=== PATIENT | male | born 1985 | race Caucasian/White ===

== ENCOUNTER 2016-11-18 15:50 | Emergency (ER) | payer SELFPAY ==
[2016-11-18] MEDS ORDERED: Aspirin Low Dose CHEW TAB* 81 MG PO ONE (16:55)
[2016-11-18 17:04] VITALS: BP 136/87
--- NOTE | 2016-11-25 07:16 | UC ---
Tracy Mitchell SooYoung, scribed for Nimo Jarquin DO on 11/18/16 at 1603 . Dizzy HPI HPI Summary: A 31 y/o M presents to [facility] [place] with worsening dizziness onset 2-3 days ago. Denies room-spinning. Associated sx: moving temporal and frontal HANSEN, back rash for one day that resolved. Rates HANSEN pain as 5 out of 10. Pert PMHx: migraines. His current migraine medication is not alleviating the pain. Pt says it doesn't feel the same as his nml migraine. Denies CP, SOB, v/d, myalgia, back pain. Pt is a daily smoker with poor dietary choices. FHx: grandfather from [place] at 40. Father has a clotting disorder with h/o dvt. Secondary complaints: Epigastric abd pain onset yesterday with nausea, rated as 4 out of 10, and described as dull. He notes regular BM, no melena. Alleviating factor: "drinking anything." Prev dx: IBS. Pt states he did not pursue recommended treatment. Previously, he's tried to avoid bread/gluten, spicy foods , and did not notice a benefit. Pt also describes having ongoing tongue numbness for past two years that has become a constant tongue pain in mouth for past month. He's been seen by his past PCP for, had blood work done, but to no relief. - History Of Current Complaint Stated Complaint: DIZZINESS Hx Obtained From: Patient, Medical Records Onset/Duration: Lasting Days, Still Present Timing: Constant Severity Currently: Moderate Pain Intensity: 5 Pain Scale Used: 0-10 Numeric Character: Dizzy Aggravating Factor(s): Nothing Alleviating Factor(s): Nothing Associated Signs And Symptoms: Positive: Nausea. Negative: Vomiting, Diaphoresis, Chest Pain, SOB, Unsteady Gait, Visual Changes - Risk Factors Cardiac Risk Factors: Smoking, Family History CVA Risk Factor: Smoking - Allergies/Home Medications Allergies/Adverse Reactions: Allergies Allergy/AdvReac Type Severity Reaction Status Date / Time Penicillins Allergy Unknown Rash Verified 11/18/16 16:01 PMH/Surg Hx/FS Hx/Imm Hx Previously Healthy: No Endocrine History Of: Denies: Diabetes, Thyroid Disease, Hyperthyroidism, Hypothyroidism, Dyslipidemia Cardiovascular History Of: Denies: Cardiac Disorders, Hypertension, Pacemaker/ICD, Myocardial Infarction , Congestive Heart Failure, Atrial Fibrillation Respiratory History Of: Reports: Bronchitis - HAS HAD IT MANY TIMES Denies: COPD, Asthma, Pneumonia, Pulmonary Embolism GI/ History Of: Denies: Gastroesophageal Reflux, Ulcer, Gastrointestinal Bleed, Gall Bladder Disease, Kidney Stones, Diverticulitis, Renal Disease, Urosepsis Neurological History Of: Reports: Migraine Denies: TIA, CVA, Dementia, Seizures Psychological History Of: Reports: Anxiety Denies: Depression, Bipolar Disorder, Schizophrenia, Post Traumatic Stress Disorder Cancer History Of: Denies: Lung Cancer, Colorectal Cancer, Breast Cancer, Prostate Cancer, Cervical Cancer - Surgical History Surgical History: Yes Surgery Procedure, Year, and Place: Dental extraction-wisdom teeth - Family History Known Family History: Positive: Cardiac Disease - grandfather, [place] at 40, Hypertension - father, Other - pos: father, blood clots/genetic clotting disorder Negative: Diabetes - Social History Occupation: Employed Full-time Lives: Alone Alcohol Use: None Alcohol Amount: twice a month Substance Use Type: None Smoking Status (MU): Current Every Day Smoker Type: Cigarettes, Smokeless Tobacco Amount Used/How Often: 1/4 PPD Length of Time of Smoking/Using Tobacco: 15 years Have You Smoked in the Last Year: Yes Household Exposure Type: Cigarettes - Immunization History Most Recent Tetanus Shot: unknown Review of Systems Constitutional: Negative Skin: Rash - pos: back, resolved Eyes: Negative ENT: Other - pos: tongue pain Respiratory: Negative Cardiovascular: Negative Gastrointestinal: Abdominal Pain, Other - pos: nausea Genitourinary: Negative Motor: Negative Neurovascular: Negative Musculoskeletal: Negative Neurological: Headache, Other - pos: dizziness Psychological: Negative All Other Systems Reviewed And Are Negative: Yes Physical Exam Triage Information Reviewed: Yes Appearance: Well-Appearing, No Pain Distress, Well-Nourished Vital Signs: Initial Vital Signs Temp 98.5 F 11/18/16 15:58 Pulse 90 11/18/16 15:58 Resp 18 11/18/16 15:58 BP 134/73 11/18/16 15:58 Pulse Ox 97 11/18/16 15:58 Vital Signs Reviewed: Yes Eyes: Positive: Conjunctiva Clear. Negative: Discharge ENT: Positive: Hearing grossly normal. Negative: Muffled/hoarse voice Neck exam: Normal Neck: Positive: Supple Respiratory: Positive: Lungs clear, Normal breath sounds, No respiratory distress, No accessory muscle use Cardiovascular: Positive: RRR, No Murmur Abdomen Description: Positive: Nontender, Soft. Negative: Distended, Guarding Bowel Sounds: Positive: Present Musculoskeletal Exam: Normal Neurological: Positive: Alert, Muscle Tone Normal Psychological: Positive: Age Appropriate Behavior Skin Exam: Normal, Other - pos: warm, dry, color nml UC Physical Exam Vital Signs On Initial Exam: Initial Vitals Temp Pulse Resp BP Pulse Ox 98.5 F 90 18 134/73 97 11/18/16 15:58 11/18/16 15:58 11/18/16 15:58 11/18/16 15:58 11/18/16 15:58 - Neurological Exam Neurological: Sensory/Motor Intact, Alert, Oriented to Person Place, Time, CN Intact II-III, Reflexes Intact, Cerebellar Dysfunction - none, Slurred Speech - none, Rhomberg - neg, Finger to Nose - wnl, Facial Symmetry - wnl, Speech Normal , Pronator Drift Present - negative Diagnostics - EKG Cardiac Rate: NL - 79 bpm Cardiac Rhythm: Sinus: Normal ST Segment: Normal Dizzy Course/Dx - Differential Dx/Diagnosis Differential Diagnosis/HQI/PQRI: Anxiety, Benign Paroxysmal Positional Vertigo, CVA, Labyrinthitis, Myocardial Infarction, Transient Ischemic Attack Provider Diagnoses: dizziness, epigastric pain Discharge - Discharge Plan Condition: Stable Disposition: AGAINST MEDICAL ADVICE Forms: *Work Release Referrals: Baldev De Leon MD [Primary Care Provider] - The documentation as recorded by the Tracy de SooYoung accurately reflects the service I personally performed and the decisions made by , Nimo Jarquin DO.
== END 2016-11-18 17:03 | disposition left against medical advice (07) ==
LOC: UCEAST 15:50
DX: R42 Dizziness and giddiness (principal); R10.13 Epigastric pain; R11.0 Nausea; Z88.0 Allergy status to penicillin; F17.210 Nicotine dependence, cigarettes, uncomplicated
CPT/HCPCS: 93005; 99212; G0463

== ENCOUNTER 2017-04-16 07:08 | Emergency (ER) | payer SELFPAY ==
[2017-04-16 07:34] VITALS: BP 141/81
--- NOTE | 2017-04-16 12:24 | UC ---
Bianca Mitchell Edward, scribed for Nimo Jarquin DO on 04/16/17 at 0733 . Skin Complaint HPI - HPI Summary HPI Summary: 32 y/o male presents to [facility] c/o abscess on the inside of the R thigh. The patient states that the abscess started draining yesterday with lots of blood but no obvious pus. The pain due to the abscess is rated 8/10 described as a sharp ache that is aggravated by touch. Associated sx: nausea, vomiting (due to pain), rash on stomach, sore throat, nasal congestion. Patient denies fever, chills, CP, SOB, HANSEN, ear ache. Patient often develops ingrown hairs. PMHx IBS and genital warts. FHx father gets blood clots. Everyday smoker. Rarely drinks alcohol. - History of Current Complaint Time Seen by Provider: 04/16/17 07:17 Stated Complaint: LUMP ON INNER THIGH Hx Obtained From: Patient Onset/Duration: Gradual Onset, Lasting Days - 2 days ago Timing: Constant Onset Severity: Severe Current Severity: Severe Pain Intensity: 8 Pain Scale Used: 0-10 Numeric Location: Discrete, Other - Inside of the R thigh Character: Pain, Redness, Raised Aggravating: Touch Alleviating: Other - position Associated Signs & Symptoms: Positive: Nausea, Vomiting, Rash - Heat rash, Drainage - Blood, no pus, Tenderness - Allergy/Home Medications Allergies/Adverse Reactions: Allergies Allergy/AdvReac Type Severity Reaction Status Date / Time Penicillins Allergy Unknown Rash Verified 04/16/17 07:27 Review of Systems Constitutional: Negative Skin: Rash, Other - Abscess on inside of R thigh Eyes: Negative ENT: Sore Throat, Sinus Congestion Respiratory: Negative Cardiovascular: Negative Gastrointestinal: Vomiting - resolved - pt has h/o n/v with mod to severe pain, Nausea - resolved - pt has h/o n/v with mod to severe pain Genitourinary: Negative Motor: Negative Neurovascular: Negative Musculoskeletal: Negative Neurological: Negative Psychological: Negative All Other Systems Reviewed And Are Negative: Yes PMH/Surg Hx/FS Hx/Imm Hx Previously Healthy: No Other GI/ History: Genital Warts, IBS - Surgical History Surgical History: Yes Surgery Procedure, Year, and Place: Dental extraction-wisdom teeth - Family History Known Family History: Positive: Cardiac Disease - grandfather, [place] at 40, Hypertension - father, Other - pos: father, blood clots/genetic clotting disorder Negative: Diabetes - Social History Alcohol Use: Occasionally Alcohol Amount: twice a month Substance Use Type: None Smoking Status (MU): Current Every Day Smoker Type: Cigarettes, Smokeless Tobacco Amount Used/How Often: 1/4 PPD Length of Time of Smoking/Using Tobacco: 15 years Have You Smoked in the Last Year: Yes Household Exposure Type: Cigarettes Cessation Counseling: Patient Advised to Stop - Immunization History Most Recent Tetanus Shot: unknown Physical Exam Triage Information Reviewed: Yes Appearance: Well-Appearing, No Pain Distress, Obese Vital Signs: Initial Vital Signs Temp 97.9 F 04/16/17 07:27 Pulse 89 04/16/17 07:27 Resp 16 04/16/17 07:27 BP 141/81 04/16/17 07:27 Pulse Ox 98 04/16/17 07:27 Vital Signs Reviewed: Yes Eyes: Positive: Conjunctiva Clear. Negative: Discharge ENT: Positive: Hearing grossly normal. Negative: Muffled/hoarse voice Neck exam: Normal Neck: Positive: Supple Respiratory: Positive: Lungs clear, Normal breath sounds, No respiratory distress, No accessory muscle use Cardiovascular: Positive: RRR, No Murmur Musculoskeletal Exam: Normal Neurological: Positive: Alert, Muscle Tone Normal Psychological Exam: Normal Psychological: Positive: Age Appropriate Behavior Skin Exam: Other - Warm, dry, normal color Skin: Positive: Other - 2 cm indurated region with 4 cm redness. Erythema and tenderness does not extend into anal, perineal and scrotal area. Course/Dx - Differential Diagnoses - Skin Complaint Differential Diagnoses: Abscess, Cellulitis, Contact Dermatitis, Tinea, Urticaria - Diagnoses Provider Diagnoses: abscess Discharge - Discharge Plan Condition: Stable Disposition: HOME Prescriptions: Acetaminop/Codeine 30 MG TAB* [Tylenol/Codeine 30 MG TAB*] 1 tab PO Q6H PRN #12 tab MDD 4 tabs PRN Reason: Pain Sulfamethox/Trimethoprim DS* [Bactrim DS 800/160 TAB*] 1 tab PO BID #20 tab Patient Education Materials: Abscess (ED), Warm Compress or Soak (ED) Referrals: Baldev De Leon MD [Primary Care Provider] - 2 Days (Follow up in 2 days for re- evaluation. This follow up visit is important, we want to know that you are improving. If you can not get in with your PCP, return here for re-evaluation. ) Additional Instructions: ANTIBIOTIC THERAPY: You have been given an antibiotic prescription. It's important that you take all the medication, unless instructed otherwise by your physician. Failure to complete the entire course can result in relapse of your condition. Common side effects of antibiotics include nausea, intestinal cramping, or diarrhea. Women may develop vaginal yeast infections, and babies can get yeast (thrush) in the mouth following the use of antibiotics. Contact your physician if you develop significant side effects from this medication. Allergy to this antibiotic can result in hives, wheezing, faintness, or itching. If symptoms of allergy occur, stop the medication and call the doctor. ANYTIME YOU TAKE AN ANTIBIOTIC, IT IS IMPORTANT TO REPLENISH THE BODY'D SUPPLY OF "GOOD BACTERIA." YOU CAN GET GOOD BACTERIA FROM HIGH QUALITY CULTURED FOODS SUCH LOCAL YOGURT, SOUR KRAUT, JOSEPHINE MEGAN, NATURALLY FERMENTED PICKLES AND PROBIOTIC DRINKS. YOU CAN ALSO GET GOOD BACTERIA FROM A PROBIOTIC SUPPLEMENT. ACETAMINOPHEN WITH CODEINE: You have been given a prescription for acetaminophen with codeine for pain control. Codeine is a narcotic. It is best taken with food, as nausea can result if taken on an empty stomach. Don't operate machinery or drive within six hours of taking this medication. Do not combine this medication with alcohol, or with any sedative type medicine such as cold tablets or sleeping pills unless your doctor gives permission. Narcotics tend to cause constipation. It's best to get plenty of fluids, fiber, and fruits. The documentation as recorded by the Bianca de Edward accurately reflects the service I personally performed and the decisions made by me, Nimo Jarquin DO.
== END 2017-04-16 08:08 | disposition home or self-care (01) ==
LOC: UCEAST 07:08
DX: L02.415 Cutaneous abscess of right lower limb (principal); Z72.0 Tobacco use
CPT/HCPCS: 99212; G0463

== ENCOUNTER 2017-08-18 15:57 | Emergency (ER) | payer SELFPAY ==
[2017-08-18 16:04] VITALS: BP 141/83
--- NOTE | 2017-08-25 21:33 | UC ---
Skin Complaint HPI - HPI Summary HPI Summary: Patient presents with complaints of pimples on his inner thighs that are red, raised and painful. He states he has had them in this area before and had to be on antibiotics. He denies drainage, fever, chills, dysuria or testicular pain. He denies any injury or trauma. - History of Current Complaint Chief Complaint: UCSkin Time Seen by Provider: 08/18/17 16:14 Stated Complaint: SKIN COMPLAINT Hx Obtained From: Patient Onset/Duration: Gradual Onset, Lasting Days Skin Exposure Onset/Duration: Days Ago Onset Severity: Moderate Current Severity: Severe Pain Intensity: 8 Pain Scale Used: 0-10 Numeric Location: Discrete, Other - left medial thigh Character: Swelling, Redness, Raised, Painful Aggravating Factor(s): Touch, Other - sitting, crossig his legs. Alleviating Factor(s): Heat Associated Signs & Symptoms: Positive: Tenderness - Allergy/Home Medications Allergies/Adverse Reactions: Allergies Allergy/AdvReac Type Severity Reaction Status Date / Time Penicillins Allergy Unknown Rash Verified 08/18/17 16:04 Review of Systems Constitutional: Negative - pimple on thigh Skin: Other Eyes: Negative ENT: Negative Respiratory: Negative Cardiovascular: Negative Gastrointestinal: Negative Genitourinary: Negative Motor: Negative Neurovascular: Negative Musculoskeletal: Negative Neurological: Negative Psychological: Negative All Other Systems Reviewed And Are Negative: Yes PMH/Surg Hx/FS Hx/Imm Hx Previously Healthy: Yes - Surgical History Surgical History: Yes Surgery Procedure, Year, and Place: Dental extraction-wisdom teeth - Family History Known Family History: Positive: Cardiac Disease - grandfather, [place] at 40, Hypertension - father, Other - pos: father, blood clots/genetic clotting disorder Negative: Diabetes - Social History Alcohol Use: None Alcohol Amount: twice a month Substance Use Type: None Smoking Status (MU): Current Every Day Smoker Type: Cigarettes, Smokeless Tobacco Amount Used/How Often: 1/4 PPD Length of Time of Smoking/Using Tobacco: 15 years Have You Smoked in the Last Year: Yes Household Exposure Type: Cigarettes - Immunization History Most Recent Tetanus Shot: unknown Physical Exam Triage Information Reviewed: Yes Appearance: Pain Distress Vital Signs: Initial Vital Signs Temp 98.4 F 08/18/17 16:01 Pulse 85 08/18/17 16:01 Resp 18 08/18/17 16:01 BP 141/83 08/18/17 16:01 Pulse Ox 100 08/18/17 16:01 Eye Exam: Normal ENT Exam: Normal Dental Exam: Normal Neck exam: Normal Neck: Positive: 1 Respiratory Exam: Normal Cardiovascular Exam: Normal Abdominal Exam: Normal Musculoskeletal Exam: Normal Neurological Exam: Normal Psychological Exam: Normal Skin Exam: Other - left meidal thigh with area of induration, no flucuance noted. warm and painful to touch. Course/Dx - Course Course Of Treatment: Patient was treated with antibiotics and pain medication. - Differential Diagnoses - Skin Complaint Differential Diagnoses: Other - hidradenitis suppurativa - Diagnoses Provider Diagnoses: hidradenitis suppurativa Discharge - Discharge Plan Condition: Stable Disposition: HOME Prescriptions: HYDROcodone/ACETAMIN 5-325 MG* [[place] 5-325 TAB*] 1 tab PO Q4H PRN #14 tab MDD 6 PRN Reason: Pain Sulfamethox/Trimethoprim DS* [Bactrim DS 800/160 TAB*] 1 tab PO BID #20 tab Patient Education Materials: Hidradenitis Suppurativa (ED) Forms: *Work Release Referrals: Baldev De Leon MD [Primary Care Provider] - Daniela Sy [Medical Doctor] -
== END 2017-08-18 16:30 | disposition home or self-care (01) ==
LOC: UCEAST 15:57
DX: L73.2 Hidradenitis suppurativa (principal); Z88.0 Allergy status to penicillin; F17.210 Nicotine dependence, cigarettes, uncomplicated
CPT/HCPCS: 99211; G0463

== ENCOUNTER 2017-09-04 17:54 | Emergency (ER) | payer SELFPAY ==
[2017-09-04] MEDS ORDERED: Ondansetron ODT TAB* 4 MG PO ONE (18:25)
[2017-09-04] MEDS ORDERED: Omeprazole CAP* 20 MG PO ONE (18:25)
--- NOTE | 2017-09-04 18:31 | UC ---
Tracy Mitchell SooYoung, scribed for Neri Gerber MD on 09/04/17 at 1814 . Abdominal Pain Male HPI - HPI Summary HPI Summary: A 32 y/o M presents to [facility] with abd pain for past 4-5 days. Associated sx: nausea, diarrhea, low grade fever under 100 F. Pt states sx will spontaneously resolve for about a day, but then flare up again. Denies melena. He states it feels similar to prev episodes of his IBS flare ups. Pert PMHx: IBS, dx approx. 2011. He was taking Levbid which provided some relief. Pt has been without health insurance for 2 years. - History of Current Complaint Chief Complaint: UCAbdominalPain Stated Complaint: ABDOMINAL PAIN Time Seen by Provider: 09/04/17 18:07 Hx Obtained From: Patient Onset/Duration: Gradual Onset, Lasting Days, Still Present Severity Initially: Moderate Severity Currently: Moderate Pain Intensity: 6 Pain Scale Used: 0-10 Numeric Location: Diffuse Aggravating Factor(s): Other - Smoking Alleviating Factor(s): Rest - sleeping, Spontaneous Resolution, Other - eating Associated Signs And Symptoms: Positive: Nausea, Diarrhea, Other - neg: melena - Allergies/Home Medications Allergies/Adverse Reactions: Allergies Allergy/AdvReac Type Severity Reaction Status Date / Time Penicillins Allergy Unknown Rash Verified 09/04/17 18:05 PMH/Surg Hx/FS Hx/Imm Hx Previously Healthy: No Respiratory History: Bronchitis GI/ History: Other Other GI/ History: IBS - Surgical History Surgical History: Yes Surgery Procedure, Year, and Place: Dental extraction-wisdom teeth - Family History Known Family History: Positive: Cardiac Disease - grandfather, [place] at 40, Hypertension - father, Other - pos: father, blood clots/genetic clotting disorder Negative: Diabetes - Social History Occupation: Employed Full-time Lives: With Family Alcohol Use: None Alcohol Amount: twice a month Substance Use Type: None Smoking Status (MU): Current Every Day Smoker Type: Cigarettes, Smokeless Tobacco Amount Used/How Often: 1/4 PPD Length of Time of Smoking/Using Tobacco: 15 years Have You Smoked in the Last Year: Yes Household Exposure Type: Cigarettes - Immunization History Most Recent Tetanus Shot: unknown Review of Systems Constitutional: Fever - low grade Gastrointestinal: Abdominal Pain, Diarrhea, Nausea, Other - neg: melena All Other Systems Reviewed And Are Negative: Yes Physical Exam Triage Information Reviewed: Yes Appearance: Well-Appearing, No Pain Distress Vital Signs: Initial Vital Signs Temp 99.8 F 09/04/17 18:00 Pulse 90 09/04/17 18:00 Resp 16 09/04/17 18:00 Pulse Ox 99 09/04/17 18:00 Vital Signs Reviewed: Yes Eyes: Positive: Other: - RIANA, EOMI ENT: Positive: Normal ENT inspection Neck: Positive: Supple, Nontender Respiratory: Positive: Lungs clear, Normal breath sounds Cardiovascular: Positive: RRR Abdomen Description: Positive: Soft, Other: - Mild tenderness to L umbilicus Bowel Sounds: Positive: Present Musculoskeletal Exam: Normal Musculoskeletal: Positive: Strength Intact, ROM Intact Neurological Exam: Normal Neurological: Positive: Alert, Muscle Tone Normal Psychological: Positive: Age Appropriate Behavior Skin Exam: Normal - warm, dry, color reflects adequate perfusion Abd Pain Male Course/Dx - Course Course Of Treatment: A 32 y/o M presents to [facility] with abd pain for past 4-5 days. Associated sx: nausea, diarrhea, low grade fever under 100 F. Pt states sx will spontaneously resolve for about a day, but then flare up again. Denies melena. He states it feels similar to prev episodes of his IBS flare ups. Pert PMHx: IBS, dx approx. 2011. He was taking Levbid which provided some relief. Pt has been without health insurance for 2 years. Medications reviewed. PROBABLE IBS EXACERBATION. DISCUSSED NEED FOR EVALUATION IN EMERGENCY DEPARTMENT IF CONDITION PERSISTS OR WORSENS. - Differential Dx/Clinical Impression Provider Diagnoses: ABDOMINAL PAIN Discharge - Discharge Plan Condition: Stable Disposition: HOME Prescriptions: Famotidine TAB* [Pepcid 20 MG TAB*] 20 mg PO BID #30 tab Hyoscyamine Sulfate [Levsin] 0.125 mg PO TID #30 tab Prochlorperazine TAB* [Compazine Tab*] 10 mg PO Q6H PRN #30 tab PRN Reason: Nausea Sucralfate TAB* [Carafate*] 1 gm PO QID #60 tab Patient Education Materials: Abdominal Pain (ED) Referrals: Baldev De Leon MD [Primary Care Provider] - Additional Instructions: FOLLOW UP WITH YOUR DOCTOR. GO TO THE EMERGENCY DEPARTMENT FOR ANY WORSENING OF YOUR CONDITION; PAIN, FEVER , YOU FEEL ILL OR QUESTIONS OR CONCERNS. The documentation as recorded by the Tracy de SooYoung accurately reflects the service I personally performed and the decisions made by me, Neri Gerber MD.
== END 2017-09-04 18:42 | disposition home or self-care (01) ==
LOC: UCEAST 17:54
DX: R10.9 Unspecified abdominal pain (principal); Z72.0 Tobacco use; Z72.89 Other problems related to lifestyle
CPT/HCPCS: 99212; A9270-GY; G0463

== ENCOUNTER 2017-09-14 11:17 | Emergency (ER) | payer SELFPAY ==
[2017-09-14 12:18] VITALS: BP 144/77
--- NOTE | 2017-09-14 12:30 | UC ---
Throat Pain/Nasal Sidney HPI - HPI Summary HPI Summary: Pt presents with ST, dry cough, and sinus congestion for 1 week. He tells me that about 2 weeks ago his girlfriend had similar symptoms and she just started feeling better. One week ago he developed sinus congestion, ST, hoarseness, and a dry cough that gradually worsened and progressed to body aches and fatigue. He has missed work the last 3 days because of this. He has not tried anything OTC because he does not have the means to afford this. He has felt feverish, but has not taken his temperature. Denies SOB, chest pain, abdominal pain, N/V/D /C, numbness, tingling, or recent illness. - History of Current Complaint Chief Complaint: UCGeneralIllness Stated Complaint: chest,ears Time Seen by Provider: 09/14/17 12:14 Hx Obtained From: Patient Onset/Duration: Gradual Onset Severity: Moderate Pain Intensity: 5 Pain Scale Used: 0-10 Numeric Cough: Nonproductive - Allergies/Home Medications Allergies/Adverse Reactions: Allergies Allergy/AdvReac Type Severity Reaction Status Date / Time Penicillins Allergy Unknown Rash Verified 09/14/17 12:18 PMH/Surg Hx/FS Hx/Imm Hx Previously Healthy: Yes GI/ History: Other Other GI/ History: IBS - Surgical History Surgical History: Yes Surgery Procedure, Year, and Place: Dental extraction-wisdom teeth - Family History Known Family History: Positive: Cardiac Disease - grandfather, [place] at 40, Hypertension - father, Other - pos: father, blood clots/genetic clotting disorder Negative: Diabetes - Social History Occupation: Employed Full-time Lives: With Family Alcohol Use: None Alcohol Amount: twice a month Substance Use Type: None Smoking Status (MU): Current Every Day Smoker Type: Cigarettes, Smokeless Tobacco Amount Used/How Often: 1/4 PPD Length of Time of Smoking/Using Tobacco: 15 years Have You Smoked in the Last Year: Yes Household Exposure Type: Cigarettes Cessation Counseling: Counseled 3+Min - 10 Min - Immunization History Most Recent Influenza Vaccination: NOT CURRENT Most Recent Tetanus Shot: unknown Review of Systems Constitutional: Fever, Chills Skin: Negative Eyes: Negative ENT: Sore Throat, Sinus Congestion, Sinus Pain/Tenderness Respiratory: Cough Cardiovascular: Negative Gastrointestinal: Negative Genitourinary: Negative Motor: Negative Neurovascular: Negative Neurological: Negative Psychological: Negative All Other Systems Reviewed And Are Negative: Yes Physical Exam Triage Information Reviewed: Yes Appearance: Well-Appearing, Well-Nourished Vital Signs: Initial Vital Signs Temp 97.6 F 09/14/17 12:14 Pulse 88 09/14/17 12:14 Resp 18 09/14/17 12:14 BP 144/77 09/14/17 12:14 Pulse Ox 100 09/14/17 12:14 Vital Signs Reviewed: Yes Eyes: Positive: Conjunctiva Clear, Other: - PERRLA. Negative: Conjunctiva Inflamed, Discharge ENT: Positive: Hearing grossly normal, Pharynx normal, Nasal congestion, Nasal drainage, TMs normal, Uvula midline. Negative: Pharyngeal erythema, TM bulging , TM dull, TM red, Tonsillar swelling, Tonsillar exudate, Sinus tenderness Neck: Positive: Supple, Nontender, No Lymphadenopathy Respiratory: Positive: Chest non-tender, Lungs clear, Normal breath sounds, No respiratory distress, No accessory muscle use Cardiovascular: Positive: RRR, No Murmur, Pulses Normal Abdomen Description: Positive: Nontender, No Organomegaly, Soft. Negative: CVA Tenderness (R), CVA Tenderness (L), Distended, Guarding Musculoskeletal: Positive: Strength Intact, ROM Intact, No Edema Neurological: Positive: Alert Psychological: Positive: Age Appropriate Behavior Skin: Negative: rashes Throat Pain/Nasal Course/Dx - Course Course Of Treatment: Pt did not want any POC testing, imaging, or rx treatment due to his lack of health insurance and inability to pay for such services. He would like to keep doing at home conservative measures as he feel he may be improving. Suspect a viral illness vs. influenza - Differential Dx/Diagnosis Differential Diagnosis/HQI/PQRI: Influenza, Laryngitis, Mononucleosis, Otitis Media, Pharyngitis, Sinusitis, Tonsillitis, URI Provider Diagnoses: Laryngitis. Viral bronchitis. Viral sinusitis. Fatigue Discharge - Discharge Plan Condition: Stable Disposition: HOME Patient Education Materials: Laryngitis (ED) Forms: *Work Release Referrals: Baldev De Leon MD [Primary Care Provider] - Additional Instructions: If you develop a fever, SOB, chest pain, new or worsening symptoms - please call your PCP or go to the ED. Your blood pressure was high at todays visit. Please see your primary provider within 4 weeks for recheck and re-evaluation.
== END 2017-09-14 12:42 | disposition home or self-care (01) ==
LOC: UCCORT 11:17
DX: J32.8 Other chronic sinusitis (principal); J04.0 Acute laryngitis; J20.8 Acute bronchitis due to other specified organisms; R53.83 Other fatigue; K58.9 Irritable bowel syndrome, unspecified; Z71.6 Tobacco abuse counseling; Z88.0 Allergy status to penicillin; F17.210 Nicotine dependence, cigarettes, uncomplicated
CPT/HCPCS: 99211; G0463

== ENCOUNTER 2017-10-08 08:47 | Emergency (ER) | payer SELFPAY ==
[2017-10-08 09:01] VITALS: BP 150/84
--- NOTE | 2017-10-08 09:22 | UC ---
Throat Pain/Nasal Sidney HPI - HPI Summary HPI Summary: 32 Y/O male presents with 4 day history of cough, nasal congestion, sinus pain, fever and chills. Denies dyspnea, nausea, vomiting, and body aches. Medical history significant for anxiety. Denies suicidal or homicidal ideations. Not currently on medications. Blood pressure is elevated today most likely due to current illness and anxiety. Medical history and medications reviewed at this visit. - History of Current Complaint Chief Complaint: UCGeneralIllness Stated Complaint: SORE THROAT, CONGESTED Time Seen by Provider: 10/08/17 09:09 Hx Obtained From: Patient Onset/Duration: Gradual Onset Severity: Moderate Pain Intensity: 7 Pain Scale Used: 0-10 Numeric Cough: Productive Associated Signs & Symptoms: Positive: Sinus Discomfort, Fever - Allergies/Home Medications Allergies/Adverse Reactions: Allergies Allergy/AdvReac Type Severity Reaction Status Date / Time Penicillins Allergy Unknown Rash Verified 10/08/17 09:02 Home Medications: Home Medications Ibuprofen TAB* [Advil TAB*] 200 mg PO Q6H PRN 10/08/17 [History Confirmed ] Stomach Stuff 1 dose PO DAILY 10/08/17 [History Confirmed 10/08/17] PMH/Surg Hx/FS Hx/Imm Hx Previously Healthy: Yes Psychological History: Anxiety - Surgical History Surgical History: Yes Surgery Procedure, Year, and Place: Dental extraction-wisdom teeth - Family History Known Family History: Positive: Cardiac Disease - grandfather, [place] at 40, Hypertension - father, Other - pos: father, blood clots/genetic clotting disorder Negative: Diabetes - Social History Alcohol Use: None Alcohol Amount: twice a month Substance Use Type: None Smoking Status (MU): Current Every Day Smoker Type: Cigarettes, Smokeless Tobacco Amount Used/How Often: 1/4 PPD Length of Time of Smoking/Using Tobacco: 15 years Have You Smoked in the Last Year: Yes Household Exposure Type: Cigarettes - Immunization History Most Recent Influenza Vaccination: NOT CURRENT Most Recent Tetanus Shot: unknown Review of Systems Constitutional: Fever, Chills Skin: Negative Eyes: Eye Redness ENT: Sore Throat, Sinus Congestion, Sinus Pain/Tenderness Respiratory: Cough Cardiovascular: Negative Gastrointestinal: Negative Genitourinary: Negative Motor: Negative Neurovascular: Negative Musculoskeletal: Negative Neurological: Negative Psychological: Negative Is Patient Immunocompromised?: No All Other Systems Reviewed And Are Negative: Yes Physical Exam Triage Information Reviewed: Yes Appearance: Well-Appearing Vital Signs: Initial Vital Signs Temp 98.9 F 10/08/17 08:59 Pulse 95 10/08/17 08:59 Resp 16 10/08/17 08:59 BP 150/84 10/08/17 08:59 Pulse Ox 99 10/08/17 08:59 Vital Signs Reviewed: Yes Eyes: Positive: Other: - Redness without exudate ENT: Positive: Nasal congestion, Sinus tenderness Neck exam: Normal Neck: Positive: No Lymphadenopathy Respiratory Exam: Normal Respiratory: Positive: Lungs clear, Normal breath sounds Cardiovascular Exam: Normal Cardiovascular: Positive: RRR Abdominal Exam: Normal Abdomen Description: Positive: Nontender Bowel Sounds: Positive: Present Musculoskeletal Exam: Normal Neurological Exam: Normal Psychological Exam: Normal Skin Exam: Normal Throat Pain/Nasal Course/Dx - Differential Dx/Diagnosis Differential Diagnosis/HQI/PQRI: Sinusitis, Tonsillitis Provider Diagnoses: Sinusitis Discharge - Discharge Plan Condition: Stable Disposition: HOME Patient Education Materials: Sinusitis (ED) Referrals: No Primary Care Phys,NOPCP [Primary Care Provider] - Additional Instructions: take medications as directed. Avoid OTC cold medications. Please follow up with Urgent care for symptoms that do not improve or worsen over the next 3 to 4 days.
== END 2017-10-08 09:45 | disposition home or self-care (01) ==
LOC: UCEAST 08:47
DX: J32.9 Chronic sinusitis, unspecified (principal); F17.210 Nicotine dependence, cigarettes, uncomplicated; Z88.0 Allergy status to penicillin
CPT/HCPCS: 99212; G0463

== ENCOUNTER 2017-11-25 06:48 | Inpatient (IN) | payer OTHER ==
[2017-11-25] MEDS ORDERED: metroNIDAZOLE IV 500 MG/100ML* 500 MG/100 ML BAG IVPB ONE (07:20)
[2017-11-25] MEDS ORDERED: Ketorolac INJ* 30 MG/ML 1 ML VIAL IV PUSH ONE (07:23)
[2017-11-25 07:44] LABS: ABS Basophils 0.1 10^3/ul (0-0.2); ABS Eosinophils 0 10^3/ul (0-0.6); ABS Lymphocytes 2.1 10^3/ul (1.0-4.8); ABS Monocytes 1.2 10^3/ul (0-0.8); ABS Nucleated RBC 0 10^3/ul; Eosinophil % 0.5 % (0-6); Hematocrit 41 % (42-52); Hemoglobin 14.7 g/dl (14.0-18.0); Lymphocyte % 20.4 % (25-47); Mean Corpuscular HGB Conc 36 g/dl (31-36); Mean Corpuscular Hemoglobin 30 pg (27-31); Mean Corpuscular Volume 84 fL (80-94); Mean Platelet Volume 9 um3 (7.4-10.4); Nucleated Red Blood Cells % 0; Platelet Count 261 10^3/ul (150-450); Red Blood Count 4.92 10^6/ul (4.0-5.4); Red Cell Distribution Width 13 % (10.5-15); White Blood Count 10.4 10^3/ul (3.5-10.8)
[2017-11-25 07:55] LABS: EGFR Non-African American 127.3 (>60)
[2017-11-25] MEDS ORDERED: Vancomycin 1500 MG IV - x ONCE IVPB ONE ×2 (08:00)
[2017-11-25] MEDS ORDERED: Vancomycin(*) 1,000 MG VIAL IVPB SCH (08:00)
--- NOTE | 2017-11-25 08:04 | RAD ---
INDICATION: Cellulitis. COMPARISON: Comparison is made with a prior study from January 13, 2016. TECHNIQUE: A portable view of the chest was obtained. FINDINGS: Cardiac and mediastinal contours appear to be within normal limits. The lungs are clear. No pleural effusion is seen. IMPRESSION: NO EVIDENCE FOR ACUTE DISEASE.
[2017-11-25 08:05] LABS: INR 1.09 (0.77-1.02)
[2017-11-25] MEDS ORDERED: Potassium Chlor TAB* 20 MEQ TAB.ER PO ONE (09:05)
[2017-11-25 09:11] LABS: Urine Appearance Cloudy; Urine Blood Negative (Negative); Urine Color Amber; Urine Ketones Negative (Negative); Urine Protein 1+(30 mg/dL) (Negative); Urine Specific Gravity 1.026 (1.010-1.030); Urine Urobilinogen Positive (Negative)
[2017-11-25] MEDS ORDERED: Acetaminophen TAB* 325 MG PO PRN (10:00)
[2017-11-25] MEDS ORDERED: Morphine INJ* 4 MG/ML 1 ML CARPUJECT IV PRN (10:00)
[2017-11-25] MEDS ORDERED: Iohexol 300* (CONTRAST) 10 ML SDV IV ONE (10:13)
[2017-11-25] MEDS ORDERED: Mouth Piece, Nicotine* 1 EACH CARTRIDGE INH PRN (10:15)
[2017-11-25] MEDS ORDERED: Vancomycin per Pharmacy* NOTE FOLLOW UP PRN (10:22)
[2017-11-25] MEDS ORDERED: Vancomycin(*) 1,000 MG in NS 0.9% 250 ML* 250 ML IVPB SCH ×2 (11:00→16:00)
--- NOTE | 2017-11-25 11:56 | RAD ---
INDICATION: Left upper from the swelling evaluate for abscess. COMPARISON: There are no prior studies available for comparison. TECHNIQUE: Contiguous axial sections were obtained of the left upper extremity. Images were reconstructed in the sagittal and coronal planes. The exam was performed following intravenous injection of 100 mL of Omnipaque 300 nonionic contrast. The images above the shoulder and include down to the proximal forearm. FINDINGS: There is diffuse soft tissue swelling mainly in the subcutaneous tissues of the left arm beginning just below the level of the shoulder and extending to the elbow. No fluid collection or abscess is seen. No significant focal osseous abnormality is noted. IMPRESSION: FINDINGS MOST CONSISTENT WITH CELLULITIS, NO EVIDENCE FOR ABSCESS.
[2017-11-25] MEDS: Linezolid 600 MG IVPREMIX(*) 600 MG/300 ML BAG IVPB SCH (12:14)
[2017-11-25] MEDS: NS 0.9% 1000 ML* 1,000 ML IV SCH ×2 (12:14→21:30)
[2017-11-25] MEDS: Morphine INJ* 4 MG/ML 1 ML SYRINGE (NEW SYRINGE VERSION) IV PRN ×2 (12:56→20:21)
--- NOTE | 2017-11-25 14:54 | RAD ---
HISTORY: Left upper chest pain and edema COMPARISONS: None relevant TECHNIQUE: Multiple transverse and longitudinal ultrasound images were obtained of the left upper extremity from the level of the internal jugular vein inferiorly through to the infra-cubital veins using grayscale, color Doppler, and spectral Doppler imaging with and without compression and with augmentation. Comparison images were obtained of the contralateral internal jugular vein and subclavian vein. FINDINGS: VEINS: There is thrombosis of the cephalic vein along the humerus. The remainder of the venous system of the left upper extremity is compressible throughout its course, with normal flow on color Doppler imaging and normal response to augmentation on spectral Doppler imaging. SOFT TISSUES: Unremarkable. OTHER FINDINGS: None. IMPRESSION: CEPHALIC VEIN THROMBOSIS.
--- NOTE | 2017-11-25 16:59 | ED ---
Art Mitchell Thomas, scribed for Seun Flynn MD on 11/25/17 at 0724 . Skin Complaint - HPI Summary HPI Summary: The patient is a 32 year old male complaining of an infection to his left upper extremity that began four days ago. He started a course of Doxycycline 100mg BID two days ago. He rates the pain 8/10. The patient denies fever. - History of Current Complaint Chief Complaint: EDExtremityUpper Time Seen by Provider: 11/25/17 07:12 Stated Complaint: LEFT ARM INFECTION Hx Obtained From: Patient Onset/Duration: Started Days Ago - 4, Still Present Timing: Constant Current Severity: Severe Pain Intensity: 8 Pain Scale Used: 0-10 Numeric Skin Location: Other: - left arm Character: Pain Aggravating Symptom(s): Touch Alleviating Symptom(s): Nothing Associated Signs & Symptoms: Negative - fever - Allergy/Home Medications Allergies/Adverse Reactions: Allergies Allergy/AdvReac Type Severity Reaction Status Date / Time Penicillins Allergy Rash Verified 11/25/17 06:54 vancomycin Allergy Itching Verified 11/25/17 11:07 Home Medications: Home Medications DULoxetine DR CAP* [Cymbalta CAP*] 60 mg PO DAILY 11/25/17 [History Confirmed ] Ibuprofen TAB* [Advil TAB*] 600 - 800 mg PO Q8H PRN 11/25/17 [History Confirmed 11/25/17] PMH/Surg Hx/FS Hx/Imm Hx Endocrine/Hematology History: Denies: Hx Diabetes, Hx Thyroid Disease Cardiovascular History: Denies: Hx Congestive Heart Failure, Hx Deep Vein Thrombosis, Hx Hypertension , Hx Myocardial Infarction, Hx Pacemaker/ICD Respiratory History: Denies: Hx Asthma, Hx Chronic Obstructive Pulmonary Disease (COPD), Hx Lung Cancer, Hx Pneumonia, Hx Pulmonary Embolism GI History: Denies: Hx Gall Bladder Disease, Hx Gastrointestinal Bleed, Hx Ulcer, Hx Urosepsis History: Denies: Hx Kidney Stones, Hx Renal Disease Neurological History: Reports: Hx Migraine Denies: Hx Dementia, Hx Seizures, Hx Transient Ischemic Attacks (TIA) Psychiatric History: Reports: Hx Anxiety Denies: Hx Depression, Hx Schizophrenia, Hx Bipolar Disorder - Surgical History Surgery Procedure, Year, and Place: Dental extraction-wisdom teeth Infectious Disease History: No Infectious Disease History: Denies: Hx Clostridium Difficile, Hx Hepatitis, Hx Human Immunodeficiency Virus (HIV), Hx of Known/Suspected MRSA, Hx Shingles, Hx Tuberculosis, Hx Known/ Suspected VRE, Hx Known/Suspected VRSA, History Other Infectious Disease, Traveled Outside the [place] in Last 30 Days - Family History Known Family History: Positive: Cardiac Disease - grandfather, [place] at 40, Hypertension - father, Other - POS: father, blood clots/genetic clotting disorder Negative: Diabetes - Social History Alcohol Use: None Alcohol Amount: twice a month Substance Use Type: Reports: None Smoking Status (MU): Current Every Day Smoker Type: Cigarettes, Smokeless Tobacco Amount Used/How Often: 1/4 PPD Length of Time of Smoking/Using Tobacco: 15 years Have You Smoked in the Last Year: Yes Review of Systems Negative: Fever Positive: Other - Infection to left upper extremity All Other Systems Reviewed And Are Negative: Yes Physical Exam - Summary Physical Exam Summary: VITAL SIGNS: Reviewed. GENERAL: Patient is a well-developed and nourished male is lying comfortable in the stretcher. Patient is not in any acute respiratory distress. HEAD AND FACE: No signs of trauma. No ecchymosis, hematomas or skull depressions. No sinus tenderness. EYES: PERRLA, EOMI x 2, No injected conjunctiva, no nystagmus. EARS: Hearing grossly intact. Ear canals and tympanic membranes are within normal limits. MOUTH: Oropharynx within normal limits. NECK: Supple, trachea is midline, no adenopathy, no JVD, no carotid bruit, no c- spine tenderness, neck with full ROM. CHEST: Symmetric, no tenderness at palpation LUNGS: Clear to auscultation bilaterally. No wheezing or crackles. CVS: Regular rate and rhythm, S1 and S2 present, no murmurs or gallops appreciated. ABDOMEN: Soft, non-tender. No signs of distention. No rebound no guarding, and no masses palpated. Bowel sounds are normal. EXTREMITIES: The left arm has positive swelling, tenderness, and erythema. There is lymphadenopahy in the left underarm. FROM in all major joints, no edema , no cyanosis or clubbing. NEURO: Alert and oriented x 3. No acute neurological deficits. Speech is normal and follows commands. SKIN: The left arm has positive swelling, tenderness, and erythema. There is lymphadenopahy in the left underarm. Triage Information Reviewed: Yes Vital Signs On Initial Exam: Initial Vitals Temp Pulse Resp BP Pulse Ox 98.0 F 109 18 142/79 99 11/25/17 06:51 11/25/17 06:51 11/25/17 06:51 11/25/17 06:51 11/25/17 06:51 Vital Signs Reviewed: Yes Diagnostics - Vital Signs Vital Signs Temp Pulse Resp BP Pulse Ox 11/25/17 06:51 98.0 F 109 18 142/79 99 - Laboratory Result Diagrams: 11/25/17 07:31 11/25/17 08:09 Lab Statement: Any lab studies that have been ordered have been reviewed, and results considered in the medical decision making process. - Radiology CXR Xray Interpretation: No Acute Changes - NO EVIDENCE FOR ACUTE DISEASE. Dr. Flynn has reviewed this report. Radiology Interpretation Completed By: Radiologist Course/Dx - Course Assessment/Plan: The patient is a 32 year old male complaining of an infection to his left upper extremity that began four days ago. He started a course of Doxycycline 100mg BID two days ago.Test results are without significant abnormalities except for potassium 3.2, glucose 152, CRP 77.7. Urinalysis negative for UTI. In the ED course, we noticed that the patient had cellulitis on the left arm, so we started the patient on vancomycin and metronidazole. In the ED course, the patient was given Zofran and morphine for the pain. The patient was feeling better. At this point, I discussed the case with Dr. Ashley , who accepts the patient for admission. The patient is hemodynamically stable and alert and oriented x 3. - Diagnoses Provider Diagnoses: Left arm cellulitis - Physician Notifications Discussed Care Of Patient With: Lona Ashley Time Discussed With Above Provider: 09:07 Instructed by Provider To: Admit As Inpatient Discharge - Discharge Plan Condition: Fair Disposition: ADMITTED TO [facility] The documentation as recorded by the Art de Thomas accurately reflects the service I personally performed and the decisions made by me, Seun Flynn MD.
[2017-11-25] MEDS: oxyCODONE/Acetamin 5/325 MG* TAB PO PRN (17:25)
--- NOTE | 2017-11-25 20:10 | HP ---
CC: Dr. Asher* HISTORY AND PHYSICAL: DATE OF ADMISSION: 11/25/17 PRIMARY CARE PROVIDER: Dr. Asher at [facility]. CHIEF COMPLAINT: Left arm pain, redness, and swelling. HISTORY OF PRESENT ILLNESS: Mr. Coronado is a 32-year-old male who states that this past Tuesday, he developed erythema, swelling, pain, and warmth about his left upper arm. He states on Tuesday, he went and saw his primary care provider and was prescribed doxycycline. He does state that he has had some fevers and chills earlier on in the course of this illness, but nothing recent. He denies any drainage or open areas in the upper arm. He denies any trauma to the arm. He does state that he had influenza last week. The patient denies any IV drug abuse. PAST MEDICAL HISTORY: Depression. MEDICATIONS: 1. Doxycycline 100 mg p.o. b.i.d. 2. Duloxetine DR 60 mg p.o. daily. 3. Advil 600 mg to 800 mg p.o. q.8 hours p.r.n. pain. ALLERGIES: PENICILLIN. FAMILY HISTORY: Mom is living, she is in her 60. She has a history of depression. Dad is living, he is also in his 60s. He has a history of hypertension and was found to be with DVTs and is now on long-term anticoagulation. SOCIAL HISTORY: The patient is an active smoker of one half pack per day. He has smoked since the age of 16. He does not drink alcohol. He does state that he got an oxymorphone from someone he knew to take for pain, but otherwise denies IV drug abuse. He denies marijuana use. He works at [employer]. He is not . He has a girlfriend. Her name is Sb. He has no children. Sb would be his surrogate decision maker. Her phone number is . REVIEW OF SYSTEMS: The patient admits to fevers and chills earlier this week as well as poor appetite for the last 3 days. Denies any chest pain. No lower extremity edema. He has an occasional cough, but no shortness of breath. He does state that he has had nausea and vomiting over the last few days. He states that his stomach is quite upset after taking the antibiotic on an empty stomach as he has not been eating. He also admits to diarrhea, but states that that has been persistent for the last like week and a half. He denies any abdominal pain. No hematochezia. No hematuria. No dysuria. No focal weakness or sensory loss. No sudden changes in vision. No dysphagia. He does complain of a left upper arm pain and redness. He admits to depression. PHYSICAL EXAMINATION GENERAL: The patient is a well-developed young male, sitting up in the stretcher, in no acute distress. VITAL SIGNS: Blood pressure 142/79, pulse 109, respirations 18, temp 98.0, O2 sat 99% on room air. HEENT: Pupils are equal and round. Extraocular muscles are intact. Oropharynx is clear. Oral mucosa is moist. There is no submandibular, cervical or subclavicular adenopathy. Thyroid is not enlarged. No thyroid nodules noted. PULMONARY: Lungs are clear to auscultation bilaterally. CARDIAC: Normal S1, S2. Heart rate is mildly tachycardic, but regular. There is no lower extremity edema. ABDOMEN: Bowel sounds are present. Abdomen is soft, nontender, and nondistended. MUSCULOSKELETAL: There is no cyanosis or clubbing of the digits. There is full active range of motion of all 4 extremities. SKIN: Warm and dry. There are no rashes, but there appears to be a small hive close to the IV insertion site. This is in the right forearm. The left upper arm is swollen. It is erythematous. It is hot and painful to touch. I am unable to palpate thoroughly to investigate for fluctuance as this does cause too much pain. In the left antecubital fossa, there appears to be site where there was an injection. The patient adamantly denies having an IV or injecting anything into the vein. It feels as if there is thrombophlebitis in the left antecubital fossa. NEUROLOGIC: Cranial nerves II through XII are grossly intact. Sensation is intact to light touch throughout. Strength is symmetric in the bilateral lower extremities. Strength in the left upper extremity is not tested due to pain with movement of the arm. The patient is able to completely extend the arm at the elbow and has no pain with movement about the shoulder. PSYCH: The patient is alert. He is oriented to x3. He is tearful at times. LABORATORY DATA: WBC 10.4, hemoglobin 14.7, hematocrit 41, and platelets 261. ESR 57. INR 1.09. Sodium 133, potassium 3.2, chloride 99, CO2 27, BUN 8, creatinine 0.72, glucose 152, lactic acid 0.9, calcium 9.5, bilirubin 0.6. AST 57, ALT 132, alkaline phosphatase 163. CPK 40. CRP 77.74. Albumin 4.1. Urinalysis reveals specific gravity of 1.026. Positive urobilinogen and protein , otherwise negative. Chest x-ray reveals no evidence for acute disease. ASSESSMENT AND PLAN: Mr. Coronado is a 32-year-old male with a history of depression who presents to the emergency room with complaints of left upper extremity redness, pain, and swelling for the last 3 days and is admitted for probable cellulitis of the left upper arm. 1. Probable cellulitis of the left upper arm. The patient was on doxycycline at home. He does not have an elevated white blood cell count at this time nor does he has fever. It is possible he was partially treating an infection with the doxycycline and therefore has not shown fever or elevated white blood cell count. We will change to vancomycin to improve coverage for MRSA. I will touch base with ID for any further recommendations on antibiotic choice. We will image the arm with a left upper extremity Doppler to rule out deep venous thrombosis especially given his father's history of what sound to be deep venous thromboses and I will also get a CT scan of the upper arm to evaluate for abscess. The patient's vital signs will be monitored. I will not follow up labs tomorrow unless something dramatically changes. I am, however, concerned given what appears to be a puncture site in the left antecubital fossa. The patient may in fact have attempted perhaps IV drugs. Urine drug screen will be sent. There does appear to be a thrombophlebitis at least present. Blood cultures have been sent and are pending. 2. Transaminitis. The patient's liver enzymes are elevated. There is no clear reason for this at this point. This is a change from his most recent labs in 2016. Additionally, his INR is mildly elevated at 1.09. For now, we will hydrate the patient. I will repeat these tomorrow to see if there is hopeful improvement in his likely infection and if not, the patient may need to undergo liver ultrasound. 3. Depression. We will continue the duloxetine. 4. According to the Adult Thrombosis Prophylaxis Risk Factor Assessment Guide, the patient has a total risk factor score of 4 making him high risk. Lovenox 40 mg subcutaneous daily will be utilized as DVT prophylaxis. 5. Code status is full and again the patient indicates that his girlfriend, Sb, is his healthcare proxy. TIME SPENT: 65 minutes were spent admitting this patient. [id number]/[facility] #: [id number] MIRIAM
[2017-11-25] MEDS: Nicotine Patch Removal NOTE FOLLOW UP SCH ×2 (20:22→20:25)
[2017-11-25] MEDS: Enoxaparin(*) 40 MG/0.4 ML SYR SUBCUT SCH (20:22)
[2017-11-25] MEDS: Nicotine Inhaler* 10 MG AMP INH PRN (20:39)
[2017-11-26] MEDS: Linezolid 600 MG IVPREMIX(*) 600 MG/300 ML BAG IVPB SCH ×2 (00:22→11:36)
[2017-11-26] MEDS: Morphine INJ* 4 MG/ML 1 ML SYRINGE (NEW SYRINGE VERSION) IV PRN ×5 (00:32→18:51)
[2017-11-26] MEDS: Nicotine Inhaler* 10 MG AMP INH PRN (00:37)
[2017-11-26] MEDS: Nicotine PATCH 14 MG/24 HR* PATCH TRANSDERM SCH (08:57)
[2017-11-26] MEDS: DULoxetine DR CAP* 60 MG CAP.DR PO SCH (08:57)
[2017-11-26] MEDS ORDERED: Vancomycin Trough Check NOTE FOLLOW UP ONE (09:30)
--- NOTE | 2017-11-26 12:33 | PN ---
Subjective Date of Service: 11/26/17 Interval History: Patient states that he feels better today, states that the redness is improving to right upper arm, continues to c/o pain to right upper arm. Denies chest pain or shortness of breath. Denies abd pain. denies n/v/d. Family History: Unchanged from Admission Social History: Unchanged from Admission Past Medical History: Unchanged from Admission Objective Active Medications: Acetaminophen (Tylenol Tab*) 650 mg PO Q4H PRN PRN Reason: PAIN Device (Nicotine Mouth Piece*) 1 each INH .USE WITH NICOTROL PRN PRN Reason: CRAVING Last Admin: 11/25/17 20:39 Dose: 1 each Duloxetine HCl (Cymbalta Cap*) 60 mg PO DAILY [facility] Last Admin: 11/26/17 08:57 Dose: 60 mg Enoxaparin Sodium (Lovenox(*)) 40 mg SUBCUT Q24H [facility] Last Admin: 11/25/17 20:22 Dose: 40 mg Sodium Chloride (Ns 0.9% 1000 Ml*) 1,000 mls @ 150 mls/hr IV PER RATE [facility] Stop: 11/26/17 16:39 Last Admin: 11/25/17 21:30 Dose: 150 mls/hr Linezolid (Zyvox 600 Mg Ivpremix(*)) 600 mg in 300 mls @ 300 mls/hr IVPB Q12H [facility] Last Admin: 11/26/17 11:36 Dose: 300 mls/hr Morphine Sulfate (Morphine Inj (Syringe)*) 4 mg IV Q4H PRN PRN Reason: Pain-severe Last Admin: 11/26/17 09:44 Dose: 4 mg Nicotine (Nicotine Inhaler*) 10 mg INH Q2H PRN PRN Reason: CRAVING Last Admin: 11/26/17 00:37 Dose: 10 mg Nicotine (Nicotine Patch 14 Mg/24 Hr*) 1 patch TRANSDERM DAILY [facility] Last Admin: 11/26/17 08:57 Dose: 1 patch Oxycodone/Acetaminophen (Percocet 5/325 Tab*) 1 tab PO Q4H PRN PRN Reason: PAIN Last Admin: 11/25/17 17:25 Dose: 1 tab Pharmacy Profile Note (Nicotine Patch Removal Note*) 1 note FOLLOW UP 2100 [facility] Last Admin: 11/25/17 20:25 Dose: Not Given Vital Signs - 8 hr 11/26/17 11/26/17 11/26/17 05:41 07:00 07:29 Temperature 98.0 F Pulse Rate 76 Respiratory 16 16 16 Rate Blood Pressure 123/68 (mmHg) O2 Sat by Pulse 100 100 Oximetry 11/26/17 11/26/17 11/26/17 09:44 10:37 11:40 Temperature 98.2 F Pulse Rate 68 Respiratory 18 18 17 Rate Blood Pressure 107/55 (mmHg) O2 Sat by Pulse 100 Oximetry Oxygen Devices in Use Now: None Appearance: appears comfortable resting in bed Eyes: No Scleral Icterus Ears/Nose/Mouth/Throat: Clear Oropharnyx, Mucous Membranes Moist Neck: NL Appearance and Movements; NL JVP, Trachea Midline Respiratory: Symmetrical Chest Expansion and Respiratory Effort, Clear to Auscultation Cardiovascular: NL Sounds; No Murmurs; No JVD Abdominal: NL Sounds; No Tenderness; No Distention Extremities: No Edema, No Clubbing, Cyanosis, - - erythema noted to right upper arm; improving Skin: - - erythema noted right upper arm. Neurological: Alert and Oriented x 3 Nutrition: Taking PO's Result Diagrams: 11/25/17 07:31 11/25/17 08:09 Assess/Plan/Problems-Billing Assessment: Mr. Coronado is a 24 y.o male that presented to the emergency room for pain and swelling to the right upper arm for a few days. found to have cellulitis - Patient Problems (1) Cellulitis Current Visit: Yes Status: Acute Code(s): L03.90 - CELLULITIS, UNSPECIFIED SNOMED Code(s): 773629377 Comment: continue on linezolid Erythema is improving (2) Transaminitis Current Visit: Yes Status: Acute Code(s): R74.0 - NONSPEC ELEV OF LEVELS OF TRANSAMNS & LACTIC ACID DEHYDRGNSE SNOMED Code(s): 030859727 Comment: improving~ will repeat LFT's in the AM (3) Hypokalemia Current Visit: Yes Status: Acute Code(s): E87.6 - HYPOKALEMIA SNOMED Code( s): 08240286 Comment: replaced yesterday with 40 meq kcl will repeat k level to this am labs (4) DVT prophylaxis Current Visit: Yes Status: Acute Code(s): CUE8382 - SNOMED Code(s): 830999410 Comment: lovenox 40 mg subq (5) Full code status Current Visit: Yes Status: Acute Code(s): Z78.9 - OTHER SPECIFIED HEALTH STATUS SNOMED Code(s): 371520444 Status and Disposition: will continue IV antibiotic and plan to D/c in AM with PO antibiotics
[2017-11-26] MEDS: oxyCODONE/Acetamin 5/325 MG* TAB PO PRN ×2 (16:28→21:00)
[2017-11-26] MEDS: Enoxaparin(*) 40 MG/0.4 ML SYR SUBCUT SCH (21:01)
[2017-11-26] MEDS: Nicotine Patch Removal NOTE FOLLOW UP SCH (21:03)
[2017-11-27] MEDS: Linezolid 600 MG IVPREMIX(*) 600 MG/300 ML BAG IVPB SCH ×3 (00:01→23:56)
[2017-11-27] MEDS: Morphine INJ* 4 MG/ML 1 ML SYRINGE (NEW SYRINGE VERSION) IV PRN ×5 (00:03→22:00)
[2017-11-27] MEDS: DULoxetine DR CAP* 60 MG CAP.DR PO SCH (08:21)
[2017-11-27] MEDS: Nicotine PATCH 14 MG/24 HR* PATCH TRANSDERM SCH (08:23)
[2017-11-27] MEDS: oxyCODONE/Acetamin 5/325 MG* TAB PO PRN ×3 (09:46→19:37)
[2017-11-27 14:45] LABS: INR 1.07 (0.77-1.02)
--- NOTE | 2017-11-27 15:46 | PN ---
Subjective Date of Service: 11/27/17 Interval History: Patient feels much better. Redness on upper arm significantly decreased compared to line drawn around it previously. Patient reports decreased pain. Patient denies F/C, N/V, Abdominal pain, CP, SOB, diarrhea, constipation, dysuria, HANSEN, or other abnormality. Patient told about his upper arm DVT. Patient states that his father has a known heritable condition that predisposes to DVT but neither he nor his father knew the name. Patient amenable to NOAC therapy. Risks and benefits of Warfarin/NOAC/No anticoagulation explained to patient. Family History: Unchanged from Admission Social History: Unchanged from Admission Past Medical History: Unchanged from Admission Objective Active Medications: Acetaminophen (Tylenol Tab*) 650 mg PO Q4H PRN PRN Reason: PAIN Apixaban (Eliquis*) 10 mg PO BID [facility] Device (Nicotine Mouth Piece*) 1 each INH .USE WITH NICOTROL PRN PRN Reason: CRAVING Last Admin: 11/25/17 20:39 Dose: 1 each Duloxetine HCl (Cymbalta Cap*) 60 mg PO DAILY [facility] Last Admin: 11/27/17 08:21 Dose: 60 mg Linezolid (Zyvox 600 Mg Ivpremix(*)) 600 mg in 300 mls @ 300 mls/hr IVPB Q12H [facility] Last Admin: 11/27/17 12:11 Dose: 300 mls/hr Morphine Sulfate (Morphine Inj (Syringe)*) 4 mg IV Q4H PRN PRN Reason: Pain-severe Last Admin: 11/27/17 12:09 Dose: 4 mg Nicotine (Nicotine Inhaler*) 10 mg INH Q2H PRN PRN Reason: CRAVING Last Admin: 11/26/17 00:37 Dose: 10 mg Nicotine (Nicotine Patch 14 Mg/24 Hr*) 1 patch TRANSDERM DAILY [facility] Last Admin: 11/27/17 08:23 Dose: Not Given Oxycodone/Acetaminophen (Percocet 5/325 Tab*) 1 tab PO Q4H PRN PRN Reason: PAIN Last Admin: 11/27/17 14:27 Dose: 1 tab Pharmacy Profile Note (Nicotine Patch Removal Note*) 1 note FOLLOW UP 2100 [facility] Last Admin: 11/26/17 21:03 Dose: 1 note Vital Signs - 8 hr 11/27/17 11/27/17 14:27 15:18 Temperature 98.1 F Pulse Rate 57 Respiratory 16 16 Rate Blood Pressure 116/63 (mmHg) O2 Sat by Pulse 100 Oximetry Oxygen Devices in Use Now: None Appearance: Patient is a 32yo male who appears stated age and is sitting in the bed in NAD. Eyes: No Scleral Icterus, PERRLA Ears/Nose/Mouth/Throat: NL Teeth, Lips, Gums, Clear Oropharnyx, Mucous Membranes Moist Neck: NL Appearance and Movements; NL JVP, Trachea Midline Respiratory: Symmetrical Chest Expansion and Respiratory Effort, Clear to Auscultation Cardiovascular: NL Sounds; No Murmurs; No JVD, RRR, No Edema, - - Pulses 2+ in B /L UE/LE. No edema in B/L LE. Slight edema in left UE over right. Abdominal: NL Sounds; No Tenderness; No Distention Lymphatic: No Cervical Adenopathy, No Axillary Adenopathy Extremities: No Edema Skin: No Nodules or Sclerosis, - - Significantly decreased area of redness on LUE. Tender to palpation. Neurological: Alert and Oriented x 3, NL Sensation, NL Muscle Strength and Tone , - - CN II-XII intact. Result Diagrams: 11/25/17 07:31 11/25/17 08:09 Assess/Plan/Problems-Billing Assessment: Mr. Coronado is a 24 y.o male that presented to the emergency room for pain and swelling to the right upper arm for a few days. Found to have cellulitis and cephalic vein thrombosis in the setting of his father having known heritable thrombophilia. - Patient Problems (1) Cephalic vein thrombosis, left Current Visit: Yes Status: Acute Code(s): I82.612 - ACUTE EMBOLISM AND THOMBOS OF SUPERFIC VEINS OF L UP EXTREM SNOMED Code(s): 491294787 Comment: Cephalic Vein thrombosis in Left cephalic vein near humerus with associated thrombophlebitis. Patient has FH of thrombophilia. Started on Eliquis 10mg PO BID for 7 days. Should then be decreased to 5mg PO BID for 6 months and then continued on dose at the discretion of his PCP. Hyperocagulable workup drawn and pending. Will need to follow up with PCP. (2) Cellulitis Current Visit: Yes Status: Acute Code(s): L03.90 - CELLULITIS, UNSPECIFIED SNOMED Code(s): 266778064 Comment: continue on linezolid Erythema is improving Plan to D/C tomorrow on oral medications. (3) Hypokalemia Current Visit: Yes Status: Acute Code(s): E87.6 - HYPOKALEMIA SNOMED Code( s): 88235303 Comment: Replaced, recheck not done. Will recheck in AM. (4) Transaminitis Current Visit: Yes Status: Acute Code(s): R74.0 - NONSPEC ELEV OF LEVELS OF TRANSAMNS & LACTIC ACID DEHYDRGNSE SNOMED Code(s): 470625062 Comment: Improving. Possibly due to recent flu. (5) DVT prophylaxis Current Visit: Yes Status: Acute Code(s): CLQ4660 - SNOMED Code(s): 330809813 Comment: Eliquis starting this PM. (6) Full code status Current Visit: Yes Status: Acute Code(s): Z78.9 - OTHER SPECIFIED HEALTH STATUS SNOMED Code(s): 174990667 Status and Disposition: Inpatient. D/C in AM on PO ABX and Eliquis.
[2017-11-27] MEDS: Apixaban* 5 MG TAB PO SCH (19:38)
[2017-11-27] MEDS: Nicotine Patch Removal NOTE FOLLOW UP SCH ×2 (19:39→19:40)
[2017-11-28] MEDS: Morphine INJ* 4 MG/ML 1 ML SYRINGE (NEW SYRINGE VERSION) IV PRN (05:53)
[2017-11-28 07:15] LABS: ABS Basophils 0 10^3/ul (0-0.2); ABS Eosinophils 0.2 10^3/ul (0-0.6); ABS Lymphocytes 1.9 10^3/ul (1.0-4.8); ABS Monocytes 0.7 10^3/ul (0-0.8); ABS Neutrophils 5.6 10^3/ul (1.5-7.7); ABS Nucleated RBC 0 10^3/ul; Eosinophil % 1.8 % (0-6); Hematocrit 38 % (42-52); Hemoglobin 13.4 g/dl (14.0-18.0); Lymphocyte % 22.7 % (25-47); Mean Corpuscular HGB Conc 35 g/dl (31-36); Mean Corpuscular Hemoglobin 30 pg (27-31); Mean Corpuscular Volume 86 fL (80-94); Mean Platelet Volume 9 um3 (7.4-10.4); Nucleated Red Blood Cells % 0.1; Platelet Count 291 10^3/ul (150-450); Red Blood Count 4.45 10^6/ul (4.0-5.4); Red Cell Distribution Width 13 % (10.5-15); White Blood Count 8.4 10^3/ul (3.5-10.8)
[2017-11-28 07:31] LABS: EGFR Non-African American 112.8 (>60)
[2017-11-28 08:26] VITALS: BP 128/64
[2017-11-28] MEDS: DULoxetine DR CAP* 60 MG CAP.DR PO SCH (08:28)
[2017-11-28] MEDS: Apixaban* 5 MG TAB PO SCH (08:28)
[2017-11-28] MEDS: Nicotine PATCH 14 MG/24 HR* PATCH TRANSDERM SCH (08:29)
--- NOTE | 2017-11-29 23:41 | DS ---
[facility] Jorge Luis Akbar MD DISCHARGE SUMMARY: DATE OF ADMISSION: 11/25/17 DATE OF DISCHARGE: 11/28/17 PRIMARY CARE PROVIDER: [facility]. [facility] MY ATTENDING WHILE IN THE HOSPITAL: Jorge Luis Akbar MD PRIMARY DISCHARGE DIAGNOSES: 1. Left upper arm cellulitis. 2. Left cephalic vein thrombosis. SECONDARY DISCHARGE DIAGNOSIS: Depression. STUDIES DONE WHILE IN THE HOSPITAL: Chest x-ray from 11/25/17 read as no evidence for acute disease. Upper extremity CT from 11/25/17 read as findings most consistent with cellulitis, no evidence for abscess. Venous Doppler study from 11/25/17 read as cephalic vein thrombosis near the humerus. MEDICATIONS AT DISCHARGE: 1. Ibuprofen 600 to 800 mg p.o. q.8 hours as needed for pain. 2. Tylenol 600 mg p.o. q.4 hours as needed. 3. Eliquis 10 mg p.o. b.i.d. 4. Linezolid 600 mg p.o. b.i.d. x8. 5. Percocet 5/325 one tab p.o. q.6 hours as needed x10. NEW MEDICATIONS AT DISCHARGE: 1. Tylenol. 2. Eliquis. 3. Linezolid. 4. Percocet. MEDICATIONS DISCONTINUED AT DISCHARGE: 1. Cymbalta 60 mg p.o. daily. 2. Doxycycline 100 mg p.o. b.i.d. HOSPITAL COURSE: This is a brief summary of the patient's presentation. For more details, please se e the history and physical from Dr. Lona Ashley on 11/25/17. In brief, the patient is a 32-year-ol d male with past medical history significant for the above who presents after 3 days of progressive l eft arm swelling, pain, fevers and chills. The patient was recently diagnosed with influenza. The p atient denied any IV drug use. The patient was prescribed doxycycline without improvement. The farshad ent had no other complaints. The patient was admitted to the hospital for probable cellulitis of his left upper arm. He was also found to have a cephalic vein thrombosis and was started on vancomycin to which he had a rash reaction and was then switched to linezolid. CT scan and ultrasound of the up per arm were obtained. The patient has a family history of heritable DVT in his father. The patient was found to have a cephalic vein thrombosis. The patient also had transaminitis, which trended humaira n over the course of his hospitalization. The patient's drug urine screen was negative. The patient had low potassium, had no other abnormalit ies on laboratory work. The patient improved greatly in terms of pain and swelling in his left arm o n linezolid therapy. The patient was started on Eliquis, despite being on Eliquis 10 mg p.o. b.i.d. for plan of 7 days. Hypercoagulable workup was drawn and is pending. The patient was amenable for di scharge on the morning of 11/28/17 after tolerating well 2 doses of his Eliquis and linezolid for 3 d ays. At that point, the patient had no other complaints except for moderate pain in his arm. PHYSICAL EXAM ON DAY OF DISCHARGE: General: The patient is a 32-year-old male who appears stated ag e and sitting comfortably in bed, in no acute distress. Vital signs at the time of discharge: Brinkley rature 98.0, pulse rate 61, respiratory rate 16, oxygen saturation 98% on room air, blood pressure 13 4/68. HEENT: Head: Normocephalic, atraumatic, sclerae anicteric. No conjunctival injection. Nasal mucosa moist. Oral mucosa moist. No pharyngeal erythema, discharge or exudate. Neck: Supple, nont jin. No lymphadenopathy. No carotid bruit auscultated. Cardiac: Regular rate and rhythm. No cli cks, murmurs, gallops, rubs. Pulses 2+ bilaterally in dorsalis pedis, posterior tibialis, and radial areas. No lower extremity edema noted. Respiratory: Clear to auscultation bilaterally. No wheeze s, rales or rhonchi. Good air exchange bilaterally. Abdomen: Soft, nontender, nondistended. Bowel sounds present and normoactive in all 4 quadrants. No hepatosplenomegaly. No abdominal bruits auscu ltated. Skin: The patient has an approximately 5 cm x 5 cm circular area of erythema on his left fo rearm, which is significantly decreased from previous line which was drawn around it. The patient al so has what could be small puncture site in his left antecubital fossa with associated ecchymosis. N o other rashes or ulcers. Neuro: Cranial nerves II through XII grossly intact. No focal deficits. Psychiatric: The patient appears anxious, but is other pleasant and cooperative. LABORATORY DATA ON DATE OF DISCHARGE: White blood cell count 8.4, hemoglobin 13.4, platelet count 29 1, INR 0.07, 31.6. Sodium 136, potassium 3.6, chloride 104, carbon dioxide 25, creatinine 0.8, glucose 110, BUN 10, calcium 9.0, magnesium 2.2, bilirubin 0.3, AST 44, ALT 69, alkaline phosphatase 100, protein 6.6, albumin 3.6, 3.0. Hypercoagulable workup pending. DISCHARGE PLAN: The patient will be discharged to home on 4 more days of linezolid and on Eliquis 10 mg p.o. b.i.d. for 7 days then switching to 5 mg p.o. b.i.d. for maintenance therapy from then on ou t. This is pending the results of his hypercoagulable workup which will be discussed with his primar care provider. The patient was placed on anticoagulant therapy based on associated cellulitis to w [facility] the thrombosis is likely contributing and due to the fact that he has family history of heritabl e hypercoagulables or with DVTs in his father making his thrombosis possibly more likely to spread. If patient has no evidence of hypercoagulability on hypercoagulable workup, then the patient has no i ndication for further anticoagulation at that point and the Eliquis should be stopped at the discreti on of his primary care provider. The patient was asked to hold his duloxetine while on linezolid due its amino-oxidase inhibitor properties and it should be resumed on the morning after his last dose o f linezolid. The patient should return to work as tolerated. The patient should engage in activity as tolerated and have a regular unrestricted diet. TIME SPENT: Approximately 60 minutes were spent on this discharge, 30 of which were spent face-to-fa ce with the patient obtaining history and physical and discussing treatment plan. NAE CORONEL [id number]/[facility] #: [id number]
== END 2017-11-28 09:25 | disposition home or self-care (01) | DRG 300 ==
LOC: ED 06:48 → MED 09:49 → OBSVTOIN 11-27 13:47
PROVIDERS: ADMIT Hospitalist; ATTEND Hospitalist
DX: I82.612 Acute embolism and thrombosis of superficial veins of left upper extremity (principal); L03.114 Cellulitis of left upper limb; I80.8 Phlebitis and thrombophlebitis of other sites; B95.4 Other streptococcus as the cause of diseases classified elsewhere; E87.6 Hypokalemia; R74.0 Nonspecific elevation of levels of transaminase and lactic acid dehydrogenase [LDH]; F32.9 Major depressive disorder, single episode, unspecified; F17.210 Nicotine dependence, cigarettes, uncomplicated; Z79.1 Long term (current) use of non-steroidal anti-inflammatories (NSAID); Z79.899 Other long term (current) drug therapy; Z88.0 Allergy status to penicillin; Z81.8 Family history of other mental and behavioral disorders; Z82.49 Family history of ischemic heart disease and other diseases of the circulatory system; Z83.2 Family history of diseases of the blood and blood-forming organs and certain disorders involving the immune mechanism
CPT/HCPCS: 36415; 71045; 80053; 80076; 80307; 81003; 81015; 81240; 82550; 83605; 83735; 85025; 85220; 85300; 85303; 85306; 85610; 85613; 85652; 85730; 86140; 87040; 87077; 87205; 99283; A9270-GY; G0378; J1650; J1885; J2020; J2270; J3370; J3490; Q9967

== ENCOUNTER 2018-02-28 10:02 | Emergency (ER) | payer SELFPAY ==
[2018-02-28 10:30] VITALS: BP 137/81
--- NOTE | 2018-02-28 10:53 | UC ---
Back Pain HPI - HPI Summary HPI Summary: bilateral thoracic back pain x 2 hrs injury at work this morning, fell on his back as he was pulling hard pain is sever, no radiation, worse with movements , better with rest, - History of Current Complaint Chief Complaint: UCBackPain Stated Complaint: WC BACK INJURY Time Seen by Provider: 02/28/18 10:17 Hx Obtained From: Patient Onset/Duration: Sudden Onset, Lasting Hours - 2, Still Present Timing: Constant Severity Initially: Severe Severity Currently: Severe Pain Intensity: 6 Back Pain: Is Discrete @ - thoracic area bilateral Character: Spasmodic Aggravating Factor(s): Movement, Lifting, Bending, Walking, Cough Alleviating Factor(s): Rest Associated Signs And Symptoms: Positive: Pain with Weight Bearing. Negative: Swelling, Redness, Bruising, Fever, Weakness, Numbness, Tingling, Abdominal Pain , Flank Pain, Bladder Incontinence, Bowel Incontinence, Weight Loss - Allergies/Home Medications Allergies/Adverse Reactions: Allergies Allergy/AdvReac Type Severity Reaction Status Date / Time Penicillins Allergy Rash Verified 02/28/18 10:31 vancomycin Allergy Itching Verified 02/28/18 10:31 Home Medications: Home Medications DULoxetine DR CAP* [Cymbalta CAP*] 60 mg PO DAILY 02/28/18 [History Confirmed ] Dicyclomine HCl 10 mg PO QID PRN 02/28/18 [History Confirmed 02/28/18] PMH/Surg Hx/FS Hx/Imm Hx Previously Healthy: Yes - Surgical History Surgical History: Yes Surgery Procedure, Year, and Place: Dental extraction-wisdom teeth - Family History Known Family History: Positive: Cardiac Disease - grandfather, [place] at 40, Hypertension - father, Other - POS: father, blood clots/genetic clotting disorder Negative: Diabetes - Social History Alcohol Use: Occasionally Alcohol Amount: twice a month "binging" Substance Use Type: None Smoking Status (MU): Current Every Day Smoker Type: eCigarettes Amount Used/How Often: 2 vials per day Length of Time of Smoking/Using Tobacco: 15 years Have You Smoked in the Last Year: Yes When Did the Patient Quit Smoking/Using Tobacco: 11/2017 Household Exposure Type: Cigarettes - Immunization History Most Recent Influenza Vaccination: NOT CURRENT Most Recent Tetanus Shot: unknown Most Recent Pneumonia Vaccination: none Review of Systems Constitutional: Negative Skin: Negative Eyes: Negative ENT: Negative Respiratory: Negative Cardiovascular: Negative Is Patient Immunocompromised?: No All Other Systems Reviewed And Are Negative: Yes Physical Exam Triage Information Reviewed: Yes Appearance: Well-Nourished, Pain Distress Vital Signs: Initial Vital Signs Temp 99.3 F 02/28/18 10:16 Pulse 80 02/28/18 10:16 Resp 20 02/28/18 10:16 BP 137/81 02/28/18 10:16 Pulse Ox 100 02/28/18 10:16 Vital Signs Reviewed: Yes Eyes: Positive: Conjunctiva Clear ENT: Positive: Normal ENT inspection, Hearing grossly normal, Pharynx normal Neck: Positive: Supple, Nontender, No Lymphadenopathy Respiratory: Positive: Chest non-tender, Lungs clear, Normal breath sounds Cardiovascular: Positive: RRR, No Murmur Abdominal Exam: Normal Abdomen Description: Positive: Nontender, Soft. Negative: CVA Tenderness (R), CVA Tenderness (L), Distended, Guarding Bowel Sounds: Positive: Present UC Physical Exam Vital Signs On Initial Exam: Initial Vitals Temp Pulse Resp BP Pulse Ox 99.3 F 80 20 137/81 100 02/28/18 10:16 02/28/18 10:16 02/28/18 10:16 02/28/18 10:16 02/28/18 10:16 - Back Exam Back Exam: normal inspection, no vertebral tenderness, decreased range of motion , muscle spasm Back Pain Course/Dx - Differential Dx/Diagnosis Provider Diagnoses: thoracic back strain Discharge - Sign-Out/Discharge Documenting (check all that apply): Discharge/Admit/Transfer - Discharge Plan Condition: Stable Disposition: HOME Prescriptions: Cyclobenzaprine TAB* [Flexeril 10 MG TAB*] 10 mg PO BID #20 tab Naproxen [Naproxen 500 mg tab] 500 mg PO BID #20 tablet Patient Education Materials: Thoracic Back Strain (ED) Forms: *Work Release Referrals: Preston Asher DO [Primary Care Provider] - 7 Days - Billing Disposition and Condition Condition: STABLE Disposition: HOME
== END 2018-02-28 10:48 | disposition home or self-care (01) ==
LOC: UCCORT 10:02
DX: S29.012A Strain of muscle and tendon of back wall of thorax, initial encounter (principal); X50.0XXA Overexertion from strenuous movement or load, initial encounter; W19.XXXA Unspecified fall, initial encounter; Y93.9 Activity, unspecified; Y92.9 Unspecified place or not applicable; Y99.0 Civilian activity done for income or pay; Z88.0 Allergy status to penicillin; Z88.1 Allergy status to other antibiotic agents; F17.210 Nicotine dependence, cigarettes, uncomplicated
CPT/HCPCS: 99212; G0463

== ENCOUNTER 2018-03-03 08:13 | Emergency (ER) | payer SELFPAY ==
--- NOTE | 2018-03-03 09:38 | UC ---
Back Pain HPI - HPI Summary HPI Summary: PATIENT FELL BACKWARDS LANDING ON HIS TAILBONE AND SUBSEQUENTLY DEVELOPED PAIN TO HIS MID BACK 3 DAYS AGO. CAME HERE TO [facility] FOR EVALUATION AT THAT TIME. WAS DIAGNOSED WITH THORACIC BACK PAIN/MUSCLE STRAIN AND TREATED WITH FLEXERIL AND NAPROXEN. PATIENT RETURNS TODAY STATING THE PAIN HAS NOT IMPROVED AT ALL. HE DENIES NUMBNESS, TINGLING. NO SADDLE ANESTHESIA OR LOSS OF BOWEL/ BLADDER CONTROL. LAST DOSE NAPROXEN 10 HRS AGO. PT APPEARS EXTREMELY UNCOMFORTABLE. - History of Current Complaint Chief Complaint: UCBackPain Stated Complaint: WC BACK PAIN Time Seen by Provider: 03/03/18 09:21 Hx Obtained From: Patient Onset/Duration: Sudden Onset, Lasting Days, Still Present Timing: Constant Severity Initially: Moderate Severity Currently: Moderate Pain Intensity: 7 Pain Scale Used: 0-10 Numeric Back Pain: Is Discrete @ - RIGHT MID BACK Character: Sharp Aggravating Factor(s): Movement Alleviating Factor(s): Nothing Associated Signs And Symptoms: Positive: Negative - Allergies/Home Medications Allergies/Adverse Reactions: Allergies Allergy/AdvReac Type Severity Reaction Status Date / Time Penicillins Allergy Rash Verified 03/03/18 08:33 vancomycin Allergy Itching Verified 03/03/18 08:33 PMH/Surg Hx/FS Hx/Imm Hx Previously Healthy: Yes - Surgical History Surgical History: Yes Surgery Procedure, Year, and Place: Dental extraction-wisdom teeth - Family History Known Family History: Positive: Cardiac Disease - grandfather, [place] at 40, Hypertension - father, Other - POS: father, blood clots/genetic clotting disorder Negative: Diabetes - Social History Alcohol Use: Occasionally Alcohol Amount: twice a month "binging" Substance Use Type: None Smoking Status (MU): Current Every Day Smoker Type: eCigarettes Amount Used/How Often: 2 vials per day Length of Time of Smoking/Using Tobacco: 15 years Have You Smoked in the Last Year: Yes When Did the Patient Quit Smoking/Using Tobacco: 11/2017 Household Exposure Type: Cigarettes - Immunization History Most Recent Influenza Vaccination: NOT CURRENT Most Recent Tetanus Shot: unknown Most Recent Pneumonia Vaccination: none Review of Systems Constitutional: Negative Skin: Negative Respiratory: Negative Cardiovascular: Negative Gastrointestinal: Negative Musculoskeletal: Arthralgia, Decreased ROM, Myalgia All Other Systems Reviewed And Are Negative: Yes Physical Exam Triage Information Reviewed: Yes Appearance: Well-Nourished, Pain Distress - SEVERE Vital Signs: Initial Vital Signs Temp 99.5 F 03/03/18 08:27 Pulse 122 03/03/18 08:27 Resp 17 03/03/18 08:27 BP 139/80 03/03/18 08:27 Pulse Ox 100 03/03/18 08:27 Vital Signs Reviewed: Yes Eyes: Positive: Conjunctiva Clear ENT: Positive: Hearing grossly normal Neck: Positive: Supple Respiratory: Positive: No respiratory distress, No accessory muscle use Cardiovascular: Positive: Tachycardia Abdomen Description: Positive: Soft Musculoskeletal: Positive: No Edema, ROM Limited @ - BACK, Other: - TTP PARASPINOUS MUSCLES RIGHT MID BACK. NOT TENDER OVER VERTEBRAE Neurological: Positive: Alert Psychological: Positive: Age Appropriate Behavior Skin: Negative: rashes Diagnostics - Radiology T-SPINE XRAYS Xray Interpretation: No Acute Changes - DEGENERATIVE CHANGES Radiology Interpretation Completed By: Radiologist Back Pain Course/Dx - Differential Dx/Diagnosis Provider Diagnoses: THORACIC BACK STRAIN Discharge - Sign-Out/Discharge Documenting (check all that apply): Discharge/Admit/Transfer - Discharge Plan Condition: Stable Disposition: HOME Prescriptions: HYDROcodone/ACETAMIN 5-325 MG* [[place] 5-325 TAB*] 1 tab PO Q6H PRN #20 tab MDD 4 PRN Reason: Pain Patient Education Materials: Thoracic Back Strain (ED) Forms: *Work Release Referrals: Preston Asher DO [Primary Care Provider] - If Needed Additional Instructions: X-RAYS OF YOUR THORACIC SPINE TODAY SHOWED SOME DEGENERATIVE CHANGE BUT NO ACUTE PATHOLOGY. YOU RECEIVED AN INJECTION OF 60MG TORADOL. GIVEN YOUR LEVEL OF DISCOMFORT I'M CONCERNED FOR SOME OTHER UNDERLYING CONDITION. KEEP YOUR WORKMEN'S COMP APPOINTMENT NEXT TUESDAY. YOU MAY BENEFIT FROM MORE ADVANCED IMAGING. HYDROCODONE/APAP NEEDED FOR DISCOMFORT ALONG WITH YOUR MUSCLE RELAXER. REST. TRY AND GO THROUGH SLOW RANGE OF MOTION EXERCISES YOU'RE ABLE TO KEEP FROM STIFFENING UP AND MAKING THE DISCOMFORT WORSE. GO TO THE ER WITHOUT FAIL IF YOU DEVELOP WORSENING PAIN, NUMBNESS/TINGLING IN YOUR LEGS OR GENITAL AREA OR LOSS OF BOWEL OR BLADDER CONTROL. - Billing Disposition and Condition Condition: STABLE Disposition: HOME
[2018-03-03] MEDS ORDERED: Ketorolac INJ* 60 MG/2 ML VIAL IM ONE (10:06)
--- NOTE | 2018-03-03 10:10 | RAD ---
Indication: Fall, persistent back pain. 2 views of the thoracic spine demonstrate vertebral bodies to be normal in height. Disc spaces all well-preserved. Pedicles appear intact. There is no evidence of fracture. IMPRESSION: Degenerative disc disease at multiple levels. No fracture is identified.
[2018-03-03 10:33] VITALS: BP 129/78
== END 2018-03-03 10:42 | disposition home or self-care (01) ==
LOC: UCCORT 08:13
DX: S29.012A Strain of muscle and tendon of back wall of thorax, initial encounter (principal); F17.210 Nicotine dependence, cigarettes, uncomplicated; Z88.0 Allergy status to penicillin; Z88.1 Allergy status to other antibiotic agents; W19.XXXA Unspecified fall, initial encounter; Y92.9 Unspecified place or not applicable
CPT/HCPCS: 72070; 96372; 99212; G0463; J1885

== ENCOUNTER 2018-03-07 11:30 | Emergency (ER) | payer SELFPAY ==
[2018-03-07 12:39] VITALS: BP 135/80
--- NOTE | 2018-03-07 13:18 | UC ---
Back Pain HPI - HPI Summary HPI Summary: lower back pain x 7 days s/p fall on his tail bone 7 days [address] his place of work sever pain of his lower back could not see [facility] yet pain is sever, worse with movement , no radiation of pain to his lower ext, no numbness, no tingling , no LE weakness, no bladder/ bowel dysfunction - History of Current Complaint Chief Complaint: UCBackPain Stated Complaint: BACK PAIN RECHECK W/WORK NOTE Time Seen by Provider: 03/07/18 12:54 Hx Obtained From: Patient Onset/Duration: Sudden Onset, Lasting Days - 7, Still Present Timing: Constant Severity Initially: Severe Severity Currently: Severe Pain Intensity: 7 Pain Scale Used: 0-10 Numeric Back Pain: Is Discrete @ - lower back Character: Aching, Throbbing Aggravating Factor(s): Movement, Bending, Walking, Cough Alleviating Factor(s): Rest Associated Signs And Symptoms: Positive: Weakness. Negative: Swelling, Redness , Bruising, Numbness, Tingling, Flank Pain, Bladder Incontinence, Bowel Incontinence - Allergies/Home Medications Allergies/Adverse Reactions: Allergies Allergy/AdvReac Type Severity Reaction Status Date / Time Penicillins Allergy Rash Verified 03/07/18 12:35 vancomycin Allergy Itching Verified 03/07/18 12:35 PMH/Surg Hx/FS Hx/Imm Hx - Additional Past Medical History Additional PMH: b/l superficial blood clots, left arm infection - Surgical History Surgical History: Yes Surgery Procedure, Year, and Place: Dental extraction-wisdom teeth - Family History Known Family History: Positive: Cardiac Disease - grandfather, [place] at 40, Hypertension - father, Other - POS: father, blood clots/genetic clotting disorder Negative: Diabetes - Social History Alcohol Use: Occasionally Alcohol Amount: twice a month "binging" Substance Use Type: Prescribed Smoking Status (MU): Current Every Day Smoker Type: eCigarettes Amount Used/How Often: 2 vials per day Length of Time of Smoking/Using Tobacco: 15 years Have You Smoked in the Last Year: Yes When Did the Patient Quit Smoking/Using Tobacco: 11/2017 Household Exposure Type: Cigarettes - Immunization History Most Recent Influenza Vaccination: NOT CURRENT Most Recent Tetanus Shot: unknown Most Recent Pneumonia Vaccination: none Review of Systems Constitutional: Negative Skin: Negative Eyes: Negative ENT: Negative Respiratory: Negative Cardiovascular: Negative Is Patient Immunocompromised?: No All Other Systems Reviewed And Are Negative: Yes Physical Exam Triage Information Reviewed: Yes Appearance: Well-Nourished, Pain Distress Vital Signs: Initial Vital Signs Temp 98.6 F 03/07/18 12:30 Pulse 86 03/07/18 12:30 Resp 16 03/07/18 12:30 BP 135/80 03/07/18 12:30 Pulse Ox 100 03/07/18 12:30 Vital Signs Reviewed: Yes Eyes: Positive: Conjunctiva Clear ENT: Positive: Normal ENT inspection, Hearing grossly normal, Pharynx normal Neck: Positive: Supple, Nontender, No Lymphadenopathy Respiratory: Positive: Chest non-tender, Lungs clear, Normal breath sounds Cardiovascular: Positive: RRR, No Murmur, Pulses Normal Abdomen Description: Positive: Soft. Negative: CVA Tenderness (R), CVA Tenderness (L) Musculoskeletal: Positive: Other: - lower back + diffuse tenderness, limited ROM on flexion and extension Skin Exam: Normal Back Pain Course/Dx - Differential Dx/Diagnosis Provider Diagnoses: contusion lower back Discharge - Sign-Out/Discharge Documenting (check all that apply): Discharge/Admit/Transfer - Discharge Plan Condition: Stable Disposition: HOME Prescriptions: Cyclobenzaprine TAB* [Flexeril 10 MG TAB*] 10 mg PO BID PRN #20 tab PRN Reason: Pain Naproxen [Naproxen 500 mg tab] 500 mg PO BID #20 tablet Patient Education Materials: Back Pain (ED) Forms: *Work Release Referrals: Preston Asher DO [Primary Care Provider] - Additional Instructions: follow up with [facility] in 2 days - Billing Disposition and Condition Condition: STABLE Disposition: HOME
== END 2018-03-07 13:11 | disposition home or self-care (01) ==
LOC: UCCORT 11:30
DX: S30.0XXA Contusion of lower back and pelvis, initial encounter (principal); W18.30XA Fall on same level, unspecified, initial encounter; Y92.89 Other specified places as the place of occurrence of the external cause; Z88.3 Allergy status to other anti-infective agents; Z88.0 Allergy status to penicillin; F17.210 Nicotine dependence, cigarettes, uncomplicated
CPT/HCPCS: 99212; G0463

== ENCOUNTER 2018-03-17 07:37 | Emergency (ER) | payer OTHER ==
[2018-03-17] MEDS ORDERED: NS 0.9% 1000 ML* 2,000 ML IV ONE (07:56)
[2018-03-17 08:22] LABS: ABS Basophils 0 10^3/ul (0-0.2); ABS Eosinophils 0.1 10^3/ul (0-0.6); ABS Lymphocytes 0.9 10^3/ul (1.0-4.8); ABS Monocytes 0.5 10^3/ul (0-0.8); ABS Neutrophils 4.5 10^3/ul (1.5-7.7); ABS Nucleated RBC 0 10^3/ul; Eosinophil % 1.9 % (0-6); Hematocrit 44 % (42-52); Hemoglobin 15.3 g/dl (14.0-18.0); Lymphocyte % 14.8 % (25-47); Mean Corpuscular HGB Conc 35 g/dl (31-36); Mean Corpuscular Hemoglobin 29 pg (27-31); Mean Corpuscular Volume 85 fL (80-94); Nucleated Red Blood Cells % 0.1; Platelet Count 220 10^3/ul (150-450); Red Blood Count 5.19 10^6/ul (4.0-5.4); Red Cell Distribution Width 14 % (10.5-15); White Blood Count 6.1 10^3/ul (3.5-10.8)
--- NOTE | 2018-03-17 08:38 | RAD ---
HISTORY: SYNCOPE, HEADACHE COMPARISONS: July 16, 2014 TECHNIQUE: Multiple contiguous axial CT scans were obtained of the head without intravenous contrast. FINDINGS: HEMORRHAGE/INFARCT: There is no hemorrhage or acute infarct. MASSES/SHIFT: There is no mass or shift. EXTRA-AXIAL SPACES: There are no extra-axial fluid collections. SULCI AND VENTRICLES: The sulci and ventricles are normal in size and position for the patient's stated age. CEREBRUM: There are no focal parenchymal abnormalities. BRAINSTEM: There are no focal parenchymal abnormalities. CEREBELLUM: There are no focal parenchymal abnormalities. VESSELS: The vessels are grossly normal. PARANASAL SINUSES: The paranasal sinuses are clear. ORBITS: The orbits are unremarkable. BONES AND SOFT TISSUE: No bone or soft tissue abnormalities are noted. OTHER: None IMPRESSION: NO ACUTE INTRACRANIAL PATHOLOGY.
[2018-03-17 08:39] LABS: EGFR Non-African American 108.9 (>60)
[2018-03-17] MEDS ORDERED: NS 0.9% 1000 ML* 1,000 ML IV ONE (11:11)
[2018-03-17 11:22] LABS: Urine Appearance Clear; Urine Blood Negative (Negative); Urine Color Yellow; Urine Ketones Negative (Negative); Urine Protein Negative (Negative); Urine Specific Gravity 1.016 (1.010-1.030); Urine Urobilinogen Negative (Negative)
[2018-03-17] MEDS ORDERED: Naloxone* 0.4 MG/ML 1 ML VIAL ONE (12:57)
[2018-03-17 14:23] VITALS: BP 117/82
--- NOTE | 2018-03-17 18:52 | ED ---
Freddie Mitchell Stephanie, scribed for Royer Ayala MD on 03/17/18 at 0805 . Syncope/Near Syncope - HPI Summary HPI Summary: The pt is a 33 y/o M presenting to the ED with c/o seizures that occurred at 06: 00 today. The pt states he woke up this morning and sat up to get out of bed and experienced a witnessed seizure. Per acquaintance, the pt was stiff, unresponsive and not moving. He states he was feeling dizzy and uncomfortable after the episode and prior to leaving for work. On his drive to work, the pt states he felt nauseous and pulled over where he believes he had another episode. Symptoms include HANSEN on the R side of the head and increased tiredness. The pt denies current nausea, neck pain, CP and abd pain. The pt takes Cymbalta and ibuprofen. The pt denies hx of seizures. - History Of Current Complaint Chief Complaint: EDSeizure Time Seen by Provider: 03/17/18 07:47 Hx Obtained From: Patient, Family/Reed Fixer Onset/Duration: Sudden Onset, Resolved Timing: Seconds Context: Witnessed Associated Head Trauma: No Aggravating Factor(s): Nothing Alleviating Factor(s): Nothing Associated Signs And Symptoms: Dizzy, Headache - Allergies/Home Medications Allergies/Adverse Reactions: Allergies Allergy/AdvReac Type Severity Reaction Status Date / Time Penicillins Allergy Rash Verified 03/07/18 12:35 vancomycin Allergy Itching Verified 03/07/18 12:35 PMH/Surg Hx/FS Hx/Imm Hx Endocrine/Hematology History: Denies: Hx Diabetes, Hx Thyroid Disease Cardiovascular History: Denies: Hx Congestive Heart Failure, Hx Deep Vein Thrombosis, Hx Hypertension , Hx Myocardial Infarction, Hx Pacemaker/ICD Respiratory History: Denies: Hx Asthma, Hx Chronic Obstructive Pulmonary Disease (COPD), Hx Lung Cancer, Hx Pneumonia, Hx Pulmonary Embolism GI History: Denies: Hx Gall Bladder Disease, Hx Gastrointestinal Bleed, Hx Ulcer, Hx Urosepsis History: Denies: Hx Kidney Stones, Hx Renal Disease Sensory History: Denies: Hx Contacts or Glasses, Hx Hearing Aid Opthamlomology History: Denies: Hx Contacts or Glasses Neurological History: Reports: Hx Migraine Denies: Hx Dementia, Hx Seizures, Hx Transient Ischemic Attacks (TIA) Psychiatric History: Reports: Hx Anxiety Denies: Hx Depression, Hx Schizophrenia, Hx Bipolar Disorder - Surgical History Surgery Procedure, Year, and Place: Dental extraction-wisdom teeth Infectious Disease History: No Infectious Disease History: Denies: Hx Clostridium Difficile, Hx Hepatitis, Hx Human Immunodeficiency Virus (HIV), Hx of Known/Suspected MRSA, Hx Shingles, Hx Tuberculosis, Hx Known/ Suspected VRE, Hx Known/Suspected VRSA, History Other Infectious Disease, Traveled Outside the [place] in Last 30 Days - Family History Known Family History: Positive: Cardiac Disease - grandfather, [place] at 40, Hypertension - father, Other - POS: father, blood clots/genetic clotting disorder Negative: Diabetes - Social History Occupation: Employed Full-time Lives: With Family Alcohol Use: Occasionally Alcohol Amount: twice a month "binging" Hx Substance Use: No Substance Use Type: Reports: None Hx Tobacco Use: Yes Smoking Status (MU): Current Every Day Smoker Type: eCigarettes Amount Used/How Often: 2 vials per day Length of Time of Smoking/Using Tobacco: 15 years Have You Smoked in the Last Year: Yes Review of Systems Positive: Other - increased tiredness. Negative: Fever, Chills Negative: Erythema Negative: Sore Throat Negative: Chest Pain Negative: Shortness Of Breath, Cough Positive: Nausea. Negative: Abdominal Pain, Vomiting Negative: dysuria, hematuria Musculoskeletal: Negative - neck pain Negative: Myalgia, Edema Negative: Rash Neurological: Other - dizziness Positive: Headache All Other Systems Reviewed And Are Negative: Yes Physical Exam - Summary Physical Exam Summary: Constitutional: Well-developed, Well-nourished, Alert. (-) Distressed Skin: Warm, Dry HENT: Normocephalic; Atraumatic, no head trauma Eyes: Conjunctiva normal Neck: Musculoskeletal ROM normal neck. (-) JVD, (-) Stridor, (-) Tracheal deviation, no neck trauma Cardio: Rhythm regular, rate normal, Heart sounds normal; Intact distal pulses; The pedal pulses are 2+ and symmetric. Radial pulses are 2+ and symmetric. (-) Murmur Pulmonary/Chest wall: Effort normal. (-) Respiratory distress, (-) Wheezes, (-) Rales Abd: Soft, (-), epigastric tenderness, (-) Distension, (-) Guarding, (-) Rebound Musculoskeletal: (-) Edema Lymph: (-) Cervical adenopathy Neuro: Alert, Oriented x3 Psych: Mood and affect Normal Triage Information Reviewed: Yes Vital Signs On Initial Exam: Initial Vitals Temp Pulse Resp BP Pulse Ox 97 F 90 16 131/84 98 03/17/18 07:43 03/17/18 07:43 03/17/18 07:43 03/17/18 07:43 03/17/18 07:43 Vital Signs Reviewed: Yes Diagnostics - Vital Signs Vital Signs Temp Pulse Resp BP Pulse Ox 03/17/18 07:43 97 F 90 16 131/84 98 - Laboratory Result Diagrams: 03/17/18 08:12 03/17/18 08:12 Lab Statement: Any lab studies that have been ordered have been reviewed, and results considered in the medical decision making process. - CT Brain CT Interpretation: No Acute Changes CT Interpretation Completed By: Radiologist - NO ACUTE INTRACRANIAL PATHOLOGY. ED physician has reviewed this report. - EKG 08:02 Cardiac Rate: NL EKG Rhythm: Sinus Rhythm - 80 BPM Re-Evaluation - Re-Evaluation First Eval Re-Evaluation Time: 13:17 Change: Unchanged - The pt is upset about the insinuation of taking opiates however he did not deny taking them. His pupils are 6 mm. Second Eval Re-Evaluation Time: 00:00 Course/Dx Course Of Treatment: No post-ictal phase. Given nausea and dizziness, possible orthostasis/syncope and/or syncopal seizure. ED physician explained to the pt that the etiology of his hypotension is unclear. The etiology would be explained if the pt took opiates this morning or last night but he denies opiate usage. ED physician cannot explain positive opiate result. ED physician went through common false positive causes and he denies all of these as well. ED physician encouraged the pt to return to the ED if needed. Sensitivity for subarachnoid hemorrhage should approach 100% given his immediate presentation. - Diagnoses Provider Diagnoses: Migraine, Orthostatic hypotension, Syncopal seizure Discharge - Sign-Out/Discharge Documenting (check all that apply): Discharge/Admit/Transfer - Discharge - Discharge Plan Condition: Stable Disposition: HOME Patient Education Materials: Acute Headache (ED), Syncope (ED), Hypotension (ED ) Forms: *Work Release Referrals: Preston Asher DO [Primary Care Provider] - 3 Days Additional Instructions: RETURN TO THE EMERGENCY DEPARTMENT FOR CHANGING OR WORSENING SYMPTOMS. The documentation as recorded by the Freddie de Stephanie accurately reflects the service I personally performed and the decisions made by , Royer Ayala MD.
== END 2018-03-17 14:23 | disposition home or self-care (01) ==
LOC: ED 07:37
DX: G43.909 Migraine, unspecified, not intractable, without status migrainosus (principal); I95.1 Orthostatic hypotension; R55 Syncope and collapse; F17.210 Nicotine dependence, cigarettes, uncomplicated; Z88.0 Allergy status to penicillin; Z88.3 Allergy status to other anti-infective agents
CPT/HCPCS: 36415; 70450; 80053; 80307; 80320; 81003; 83605; 83735; 84443; 84484; 85025; 93005; 96360; 96361; 99284; G0480; J2310

== ENCOUNTER 2018-06-27 07:17 | Emergency (ER) | payer SELFPAY ==
[2018-06-27 07:30] VITALS: BP 133/71
[2018-06-27] MEDS ORDERED: Lidocain 1% EPI 1:100,000 * 30 ML MDV INJ ONE (07:42)
--- NOTE | 2018-06-27 07:44 | UC ---
Skin Complaint HPI - HPI Summary HPI Summary: The patient is a 33-year-old male that presents here with a painful red raised area on his right calf. That about 3 days ago. It may have originated from the abrasion that he obtained while working on a roof. He denies any fever. Has had some myalgias and malaise. Had some nausea. He does have a history of being admitted to the hospital for treatment of a left arm cellulitis. He denies any history of MRSA. - History of Current Complaint Chief Complaint: UCSkin Time Seen by Provider: 06/27/18 07:33 Stated Complaint: SKIN ISSUE Hx Obtained From: Patient Onset/Duration: Gradual Onset, Lasting Days Timing: Constant Onset Severity: Mild Current Severity: Moderate Pain Intensity: 5 Pain Scale Used: 0-10 Numeric Location: Discrete Character: Swelling, Pain, Redness, Raised Aggravating Factor(s): Touch Alleviating Factor(s): Nothing Associated Signs & Symptoms: Positive: Nausea - Allergy/Home Medications Allergies/Adverse Reactions: Allergies Allergy/AdvReac Type Severity Reaction Status Date / Time Penicillins Allergy Rash Verified 06/27/18 07:30 vancomycin Allergy Itching Verified 06/27/18 07:30 Home Medications: Home Medications Ibuprofen 600 mg PO ONCE PRN 06/27/18 [History Confirmed 06/27/18] Review of Systems Constitutional: Negative Skin: Negative Eyes: Negative ENT: Negative Respiratory: Negative Cardiovascular: Negative Gastrointestinal: Nausea Genitourinary: Negative Motor: Negative Neurovascular: Negative Musculoskeletal: Myalgia Neurological: Negative Psychological: Negative All Other Systems Reviewed And Are Negative: Yes PMH/Surg Hx/FS Hx/Imm Hx Previously Healthy: Yes - Surgical History Surgical History: Yes Surgery Procedure, Year, and Place: Dental extraction-wisdom teeth - Family History Known Family History: Positive: Cardiac Disease - grandfather, [place] at 40, Hypertension - father, Diabetes, Other - POS: father, blood clots/genetic clotting disorder - Social History Alcohol Use: None Alcohol Amount: twice a month "binging" Substance Use Type: None Smoking Status (MU): Former Smoker Type: eCigarettes Amount Used/How Often: 2 vials per day Length of Time of Smoking/Using Tobacco: 15 years Have You Smoked in the Last Year: Yes When Did the Patient Quit Smoking/Using Tobacco: 11/2017 Household Exposure Type: Cigarettes - Immunization History Most Recent Influenza Vaccination: NOT CURRENT Most Recent Tetanus Shot: unknown Most Recent Pneumonia Vaccination: none Physical Exam Triage Information Reviewed: Yes Appearance: Well-Appearing, No Pain Distress, Well-Nourished Vital Signs: Initial Vital Signs Temp 98 F 06/27/18 07:25 Pulse 74 06/27/18 07:25 Resp 18 06/27/18 07:25 BP 133/71 06/27/18 07:25 Pulse Ox 99 06/27/18 07:25 Eyes: Positive: Conjunctiva Clear ENT: Positive: Hearing grossly normal. Negative: Nasal congestion, Nasal drainage, Trismus, Muffled voice, Hoarse voice Neck: Positive: Supple, Nontender Respiratory: Positive: Lungs clear, Normal breath sounds, No respiratory distress Cardiovascular: Positive: RRR, No Murmur Musculoskeletal: Positive: ROM Intact, No Edema Neurological: Positive: Alert Psychological Exam: Normal Skin Exam: Other - 2x 2 cm area of induration /redness right lateral calf Course/Dx - Diagnoses Provider Diagnoses: right calf abscess with overlying cellulitis Procedures - Procedure Summary Procedure Summary: Incision and drainage of RIGHT CALF ABSCESS Procedure explained Time out preformed sterile prep anest with 2% lido plus epi small incision with 11 blade 1 cc thin bloody pus expressed culture obtained sterile dressing applied Discharge - Sign-Out/Discharge Documenting (check all that apply): Patient Departure All imaging exams completed and their final reports reviewed: No Studies - Discharge Plan Condition: Improved Disposition: HOME Prescriptions: Sulfamethox/Trimethoprim DS* [Bactrim DS 800/160 TAB*] 1 tab PO BID #14 tab Patient Education Materials: Abscess (ED), MRSA (Methicillin-Resistant Staphylococcus Aureus) (ED) Referrals: Preston Asher DO [Primary Care Provider] - Additional Instructions: a culture is pending you may have a MRSA activity as tolerated warm compresses recheck in 48 hours if not markedly better - Billing Disposition and Condition Condition: IMPROVED Disposition: Home
[2018-06-27] MEDS ORDERED: Lidocaine 2% W/EPI 1:100,000* 20 ML MDV INJ ONE (07:50)
[2018-06-27] MEDS ORDERED: Lidocain 1% EPI 1:100,000 * 30 ML MDV ONE (07:51)
--- NOTE | 2018-06-30 15:41 | UC ---
- Progress Note Progress Note: Patient had I&D performed on 06/27/2018 and placed on Bactrim DS. Wound culture grew out 1+ staphylococcus lugdenensis. Please call patient to see if symptoms are improving as he may need a different antibiotic if symptoms persist however I&D may have been sufficient for treatment. Discharge - Sign-Out/Discharge Documenting (check all that apply): Post-Discharge Follow Up All imaging exams completed and their final reports reviewed: No Studies - Discharge Plan Condition: Improved Disposition: HOME Prescriptions: Sulfamethox/Trimethoprim DS* [Bactrim DS 800/160 TAB*] 1 tab PO BID #14 tab Patient Education Materials: MRSA (Methicillin-Resistant Staphylococcus Aureus ) (ED), Abscess (ED) Referrals: Preston Asher DO [Primary Care Provider] - Additional Instructions: a culture is pending you may have a MRSA activity as tolerated warm compresses recheck in 48 hours if not markedly better - Billing Disposition and Condition Condition: IMPROVED Disposition: Home
== END 2018-06-27 08:30 | disposition home or self-care (01) ==
LOC: UCEAST 07:17
DX: L02.415 Cutaneous abscess of right lower limb (principal); L03.115 Cellulitis of right lower limb; Z88.0 Allergy status to penicillin; Z88.3 Allergy status to other anti-infective agents; Z87.891 Personal history of nicotine dependence
CPT/HCPCS: 87070; 87077; 87186; 87205; 99212; G0463

== ENCOUNTER 2018-10-04 07:27 | Emergency (ER) | payer OTHER ==
--- NOTE | 2018-10-04 08:08 | ED ---
GI/ HPI - HPI Summary HPI Summary: 33 yo WM h/o IBS p/w acute left flank pain w/o radiation x 2-3 days associated with non-bloody diarrhea, nausea and vomiting, WITHOUT f/c. Has had colonoscopy in the past but w/o dx of colonic anatomic abnormalities i.e- UC or Crohn's, NO medications has worked in the past for his IBS per pt. Currently pain is 6/10, dull deep and achy. - History of Current Complaint Chief Complaint: UCGeneralIllness Time Seen by Provider: 10/04/18 07:53 Stated Complaint: PAIN ON SIDE Hx Obtained From: Patient Onset/Duration: Started Days Ago Timing: Constant Severity: Moderate Current Severity: Severe Pain Intensity: 6 Pain Characteristics: Dull, Burning Associated Signs and Symptoms: Positive: Nausea, Vomiting, Diarrhea, Flank Pain. Negative: Back Pain, Dizziness, Weakness, Fever, Hematuria, Dysuria, Chills - Additional Pertinent History Primary Care Physician: [facility] - Allergy/Home Medications Allergies/Adverse Reactions: Allergies Allergy/AdvReac Type Severity Reaction Status Date / Time Penicillins Allergy Rash Verified 10/04/18 07:42 vancomycin Allergy Itching Verified 10/04/18 07:42 contrast dye AdvReac See Comment Uncoded 10/04/18 07:42 Home Medications: Home Medications Acetaminophen [Tylophen] 1,000 mg PO ONCE PRN 10/04/18 [History Confirmed ] PMH/Surg Hx/FS Hx/Imm Hx Previously Healthy: Yes Endocrine/Hematology History: Denies: Hx Diabetes, Hx Thyroid Disease Cardiovascular History: Denies: Hx Congestive Heart Failure, Hx Deep Vein Thrombosis, Hx Hypertension , Hx Myocardial Infarction, Hx Pacemaker/ICD Respiratory History: Denies: Hx Asthma, Hx Chronic Obstructive Pulmonary Disease (COPD), Hx Lung Cancer, Hx Pneumonia, Hx Pulmonary Embolism GI History: Reports: Hx Ulcer - IBS Denies: Hx Gall Bladder Disease, Hx Gastrointestinal Bleed, Hx Urosepsis History: Denies: Hx Kidney Stones, Hx Renal Disease Sensory History: Denies: Hx Contacts or Glasses, Hx Hearing Aid Opthamlomology History: Denies: Hx Contacts or Glasses Neurological History: Reports: Hx Migraine Denies: Hx Dementia, Hx Seizures, Hx Transient Ischemic Attacks (TIA) Psychiatric History: Reports: Hx Anxiety Denies: Hx Depression, Hx Schizophrenia, Hx Bipolar Disorder - Surgical History Surgery Procedure, Year, and Place: Dental extraction-wisdom teeth Infectious Disease History: No Infectious Disease History: Denies: Hx Clostridium Difficile, Hx Hepatitis, Hx Human Immunodeficiency Virus (HIV), Hx of Known/Suspected MRSA, Hx Shingles, Hx Tuberculosis, Hx Known/ Suspected VRE, Hx Known/Suspected VRSA, History Other Infectious Disease, Traveled Outside the [place] in Last 30 Days - Family History Known Family History: Positive: Cardiac Disease - grandfather, [place] at 40, Hypertension - father, Diabetes, Other - POS: father, blood clots/genetic clotting disorder - Social History Alcohol Use: None Alcohol Amount: twice a month "binging" Hx Substance Use: No Substance Use Type: Reports: None Hx Tobacco Use: Yes Smoking Status (MU): Light Every Day Tobacco Smoker Type: eCigarettes Amount Used/How Often: 2 vials per day Length of Time of Smoking/Using Tobacco: 15 years Have You Smoked in the Last Year: Yes Review of Systems Constitutional: Negative Eyes: Negative ENT: Negative Cardiovascular: Negative Respiratory: Negative Positive: Abdominal Pain, Vomiting, Diarrhea, Nausea Genitourinary: Negative Musculoskeletal: Negative Skin: Negative Psychological: Normal All Other Systems Reviewed And Are Negative: Yes Physical Exam - Summary Physical Exam Summary: Vital Signs Reviewed: Yes Skin: Positive: Warm Head/Face: Positive: Normal Head/Face Inspection Eyes: Positive: Normal ENT: Positive: Normal ENT inspection Neck: Positive: Supple Respiratory/Lung Sounds: Positive: Clear to Auscultation Cardiovascular: Positive: Normal, RRR, S1, S2 Abdomen Description: Positive: moderate TTP on left flank, w/o radiation, NEG guarding or rebound Musculoskeletal: Positive: Normal Neurological: Positive: Normal Psychiatric: Positive: Normal, Affect/Mood Appropriate Vital Signs On Initial Exam: Initial Vitals Temp Pulse Resp BP Pulse Ox 37.1 C 87 18 133/81 98 10/04/18 07:35 10/04/18 07:35 10/04/18 07:35 10/04/18 07:35 10/04/18 07:35 Diagnostics - Vital Signs Vital Signs Temp Pulse Resp BP Pulse Ox 10/04/18 07:35 37.1 C 87 18 133/81 98 - Laboratory Lab Statement: Any lab studies that have been ordered have been reviewed, and results considered in the medical decision making process. GIGU Course/Dx - Course Assessment/Plan: Left flank pain- No blood in UA-. CT abd/pelvis- sigmoid colitis- origin hard to decipher at this point in time- advised pt to f/roshanith PCP and GI- PO flagy; and cipro as directed, copy of CT given on CD - Diagnoses Differential Diagnoses - Male: Constipation, Diverticulitis, Enterocolitis, Renal Calculi, Renal Colic Provider Diagnoses: Acute left flank pain, Colitis Discharge - Sign-Out/Discharge Documenting (check all that apply): Patient Departure All imaging exams completed and their final reports reviewed: Yes - Discharge Plan Condition: Stable Disposition: HOME Prescriptions: Ciprofloxacin TAB* [Cipro 500 MG TAB*] 500 mg PO BID 10 Days #20 tab metroNIDAZOLE [Flagyl 500 MG TAB] 500 mg PO TID 10 Days #30 tab Ondansetron ODT TAB* [Zofran 4 MG Odt TAB*] 4 mg PO Q6H PRN 5 Days #20 tab.odt PRN Reason: Nausea oxyCODONE/Acetamin 5/325 MG* [Percocet 5/325 TAB*] 1 tab PO Q8H PRN 3 Days #12 tab MDD 3 PRN Reason: Pain Patient Education Materials: Colitis (ED) Additional Instructions: FOLLOW UP WITH PCP AND CLEARING HOUSE CLERK NICK - Billing Disposition and Condition Condition: STABLE Disposition: Home
[2018-10-04 09:44] VITALS: BP 109/84
== END 2018-10-04 10:37 | disposition home or self-care (01) ==
LOC: UCEAST 07:27
DX: K52.9 Noninfective gastroenteritis and colitis, unspecified (principal); K58.0 Irritable bowel syndrome with diarrhea; R11.2 Nausea with vomiting, unspecified; R10.9 Unspecified abdominal pain; F17.290 Nicotine dependence, other tobacco product, uncomplicated; Z91.041 Radiographic dye allergy status; Z88.0 Allergy status to penicillin; Z88.1 Allergy status to other antibiotic agents
CPT/HCPCS: 74176; 81003; 99212; G0463

== ENCOUNTER 2018-10-06 14:52 | Emergency (ER) | payer OTHER ==
[2018-10-06 15:05] VITALS: BP 136/76
--- NOTE | 2018-10-06 15:55 | UC ---
Abdominal Pain Male HPI - HPI Summary HPI Summary: 33-year-old male with a history of IBS presents for persistent left lower quadrant pain and no bowel movement for 2 days. Patient was evaluated at this facility on 10/04/2018 for left lower quadrant pain and nonbloody diarrhea. He had a CT of the abdomen and pelvis without contrast performed at that time which revealed some mild mural thickening at the mid sigmoid colon without any diverticula, perienteric inflammation, ascites, or free air. He was diagnosed with colitis of unknown origin and started on ciprofloxacin and metronidazole which she has been compliant with taking. He states that the pain is unchanged from previous visit and that his main concern is that he has been unable to have a bowel movement. States he has a good appetite and has been able to eat and drink without any difficulties. Denies fever, chills, nausea, vomiting, diarrhea, blood in stools, melena, dysuria, frequency, urgency, or hematuria. - History of Current Complaint Chief Complaint: UCGI Stated Complaint: ABDOMINAL PAIN, AND CONSTIPATION Time Seen by Provider: 10/06/18 15:16 Pain Intensity: 6 - Allergies/Home Medications Allergies/Adverse Reactions: Allergies Allergy/AdvReac Type Severity Reaction Status Date / Time Penicillins Allergy Rash Verified 10/06/18 15:05 vancomycin Allergy Itching Verified 10/06/18 15:05 contrast dye AdvReac See Comment Uncoded 10/06/18 15:05 PMH/Surg Hx/FS Hx/Imm Hx GI/ History: Other - IBS - Surgical History Surgical History: Yes Surgery Procedure, Year, and Place: Dental extraction-wisdom teeth - Family History Known Family History: Positive: Cardiac Disease - grandfather, [place] at 40, Hypertension - father, Diabetes, Other - POS: father, blood clots/genetic clotting disorder - Social History Occupation: Employed Full-time Lives: With Family Alcohol Use: None Alcohol Amount: twice a month "binging" Substance Use Type: None Smoking Status (MU): Former Smoker Type: eCigarettes Amount Used/How Often: 2 vials per day Length of Time of Smoking/Using Tobacco: 15 years Have You Smoked in the Last Year: Yes When Did the Patient Quit Smoking/Using Tobacco: 11/2017 Household Exposure Type: Cigarettes - Immunization History Most Recent Influenza Vaccination: NOT CURRENT Most Recent Tetanus Shot: unknown Most Recent Pneumonia Vaccination: none Review of Systems All Other Systems Reviewed And Are Negative: Yes Constitutional: Negative: Fever, Chills Respiratory: Negative: Shortness Of Breath Cardiovascular: Negative: Palpitations, Chest Pain Gastrointestinal: Positive: Abdominal Pain. Negative: Vomiting, Diarrhea, Nausea Genitourinary: Negative: Dysuria, Hematuria, Frequency, Urgency Is Patient Immunocompromised?: No Physical Exam - Summary Physical Exam Summary: GENERAL APPEARANCE: Well developed, well nourished, alert and cooperative, and appears to be in no acute distress. CARDIAC: Normal S1 and S2. No S3, S4 or murmurs. Rhythm is regular. There is no peripheral edema, cyanosis or pallor. Extremities are warm and well perfused. Capillary refill is less than 2 seconds. LUNGS: Clear to auscultation and percussion without rales, rhonchi, wheezing or diminished breath sounds. ABDOMEN: Positive bowel sounds. Soft, nondistended. Mild LLQ tenderness without guarding or rebound. No masses or hepatosplenomegally. MUSKULOSKELETAL: ROM intact to all extremities. No joint erythema or tenderness. Normal muscular development. Normal gait. SKIN: Skin normal color, texture and turgor with no lesions or eruptions. Triage Information Reviewed: Yes Vital Signs: Initial Vital Signs Temp 98.9 F 10/06/18 15:01 Pulse 85 10/06/18 15:01 Resp 18 10/06/18 15:01 BP 136/76 10/06/18 15:01 Pulse Ox 100 10/06/18 15:01 Vital Signs Reviewed: Yes Abd Pain Male Course/Dx - Course Course Of Treatment: 33-year-old male with a history of IBS presents for persistent left lower quadrant pain and no bowel movement for 2 days. Patient was evaluated at this facility on 10/04/2018 for left lower quadrant pain and nonbloody diarrhea. He had a CT of the abdomen and pelvis without contrast performed at that time which revealed some mild mural thickening at the mid sigmoid colon without any diverticula, perienteric inflammation, ascites, or free air. He was diagnosed with colitis of unknown origin and started on ciprofloxacin and metronidazole which she has been compliant with taking. He states that the pain is unchanged from previous visit and that his main concern is that he has been unable to have a bowel movement. States he has a good appetite and has been able to eat and drink without any difficulties. Denies fever, chills, nausea, vomiting, diarrhea, blood in stools, melena, dysuria, frequency, urgency, or hematuria. Afebrile. Vital signs stable. His exam was unremarkable except for some mild left lower quadrant tenderness. Discussed with patient the limitations of diagnosis from a noncontrasted CT and no lab work and suggested evaluation in the emergency room. Patient states he was only concerned that he had not had a bowel movement and plans on following up at [facility] tomorrow for further evaluation. Encourage patient have a low threshold for ED evaluation for any worsening of his abdominal pain or symptoms especially if he started running any fever. Recommend he could try a fiber laxative but should avoid any stimulant laxatives since we are not sure of the exact cause of his colitis at this time. Warning symptoms were reviewed with the patient. He verbalizes understanding and agrees with plan of care. - Differential Dx/Clinical Impression Differential Diagnosis/HQI/PQRI: Bowel Obstruction, Constipation, Diverticulitis , Renal Colic Provider Diagnosis: Acute colitis Discharge - Sign-Out/Discharge Documenting (check all that apply): Patient Departure All imaging exams completed and their final reports reviewed: No Studies - Discharge Plan Condition: Stable Disposition: HOME Patient Education Materials: Colitis (ED) Forms: *Work Release Referrals: No Primary Care Phys,NOPCP [Primary Care Provider] - Additional Instructions: Continue taking the ciprofloxacin and metronidazole as prescribed. You may try using a fiber laxative such as Metamucil or Citrucel according to directions but I would avoid taking any stimulant laxatives at this time since we do not know the exact cause of your colitis. Follow up with your primary care provider as soon as possible for recheck of symptoms. Seek immediate medical attention in the emergency room if you develop fever greater than 100.5 F, have worsening of abdominal pain, vomiting, blood in stool , or any worsening of symptoms. - Billing Disposition and Condition Condition: STABLE Disposition: Home
== END 2018-10-06 16:00 | disposition home or self-care (01) ==
LOC: UCEAST 14:52
DX: K52.89 Other specified noninfective gastroenteritis and colitis (principal); Z88.0 Allergy status to penicillin; Z88.1 Allergy status to other antibiotic agents; Z91.041 Radiographic dye allergy status; Z87.891 Personal history of nicotine dependence
CPT/HCPCS: 99211; G0463

== ENCOUNTER 2018-11-24 09:47 | Emergency (ER) | payer OTHER ==
[2018-11-24 11:21] VITALS: BP 125/80
[2018-11-24 11:43] LABS: Influenza A Molecular NEGATIVE (Negative); Influenza B Molecular NEGATIVE (Negative)
--- NOTE | 2018-11-24 12:04 | UC ---
FLU HPI - HPI Summary HPI Summary: 33 y/o male presents to the urgent care c/o sore throat, nasal congestion, fever , body ahces, clear nasal discharge, HANSEN for the past 2 days. Max Temp of 100.9F. He has been taking OTC medication to alleviate symptoms. He has been exposed to family member who have been Dx w/ the flu. Pt denies dizziness, SOB , chest pain, abdominal pain, N/V/D. - History of Current Complaint Chief Complaint: UCGeneralIllness Stated Complaint: FLU-LIKE SYMPTOMS Time Seen by Provider: 11/24/18 12:02 Hx Obtained From: Patient Pain Intensity: 6 - Allergy/Home Medications Allergies/Adverse Reactions: Allergies Allergy/AdvReac Type Severity Reaction Status Date / Time Penicillins Allergy Rash Verified 11/24/18 11:21 vancomycin Allergy Itching Verified 11/24/18 11:21 contrast dye AdvReac See Comment Uncoded 11/24/18 11:21 PMH/Surg Hx/FS Hx/Imm Hx Previously Healthy: Yes Other GI/ History: IBS - Surgical History Surgical History: Yes Surgery Procedure, Year, and Place: Dental extraction-wisdom teeth - Family History Known Family History: Positive: Cardiac Disease - grandfather, [place] at 40, Hypertension - father, Diabetes, Other - POS: father, blood clots/genetic clotting disorder - Social History Occupation: Employed Full-time Lives: With Family Alcohol Use: None Alcohol Amount: twice a month "binging" Substance Use Type: None Smoking Status (MU): Former Smoker Type: eCigarettes Amount Used/How Often: 2 vials per day Length of Time of Smoking/Using Tobacco: 15 years Have You Smoked in the Last Year: Yes When Did the Patient Quit Smoking/Using Tobacco: 11/2017 Household Exposure Type: Cigarettes - Immunization History Most Recent Influenza Vaccination: NOT CURRENT Most Recent Tetanus Shot: unknown Most Recent Pneumonia Vaccination: none Review of Systems All Other Systems Reviewed And Are Negative: Yes Constitutional: Positive: Fever - low grade fever at home, Chills Skin: Positive: Negative Eyes: Positive: Negative ENT: Positive: Sore Throat - mild, Nasal Discharge - clear, Sinus Congestion Respiratory: Positive: Cough - dry Cardiovascular: Positive: Negative Gastrointestinal: Positive: Negative Genitourinary: Positive: Negative Motor: Positive: Negative Neurovascular: Positive: Negative Musculoskeletal: Positive: Myalgia Neurological: Positive: Headache Psychological: Positive: Negative Is Patient Immunocompromised?: No Physical Exam - Summary Physical Exam Summary: VITAL SIGNS: Reviewed. GENERAL: Patient is a well developed and nourished male who is sitting comfortable in the examining table. Patient is not in any acute respiratory distress. HEAD AND FACE: No signs of trauma. No ecchymosis, hematomas or skull depressions. No sinus tenderness. EYES: PERRLA, EOMI x 2, No injected conjunctiva, no nystagmus. No photophobia. EARS: Hearing grossly intact. Ear canals and tympanic membranes are within normal limits. Nose: edematous and erythematous nasal mucosa w/ clear nasal discharge. MOUTH: Positive no erythema, no tonsillar enlargement. Uvula in midline. NECK: Supple, trachea is midline, Positive anterior cervical lymphadenopathy, no JVD, no carotid bruit, no c-spine tenderness, neck with full ROM. No meningeal signs, no Kernig's or brudzinskis signs. CHEST: Symmetric, no tenderness at palpation LUNGS: Clear to auscultation bilaterally. No wheezing or crackles. CVS: Regular rate and rhythm, S1 and S2 present, no murmurs or gallops appreciated. ABDOMEN: Soft, non-tender. No signs of distention. No rebound no guarding, and no masses palpated. Bowel sounds are normal. EXTREMITIES: FROM in all major joints, no edema, no cyanosis or clubbing. NEURO: Alert and oriented x 3. No acute neurological deficits. Speech is normal and follows commands. SKIN: Dry and warm Triage Information Reviewed: Yes Vital Signs: Initial Vital Signs Temp 99.2 F 11/24/18 11:18 Pulse 62 11/24/18 11:18 Resp 16 11/24/18 11:18 BP 125/80 11/24/18 11:18 Pulse Ox 100 11/24/18 11:18 Flu Course/Dx - Course Course Of Treatment: 33 y/o male presents to the urgent care c/o sore throat, nasal congestion, fever, body ahces, clear nasal discharge, HANSEN for the past 2 days. Max Temp of 100.9F. He has been taking OTC medication to alleviate symptoms. He has been exposed to family member who have been Dx w/ the flu. Pt denies dizziness, SOB, chest pain, abdominal pain, N/V/D. Hx obtained. Pt with URI on examination. .Influenza A&B ordered: result: negative. However since family members w/ the flu, Pt Rx Tamiflu and ibuprofen PO to alleviates symptoms. Advised on hand washing and wear a mask to avoid spreading. Pt advised to rest, increase fluid intake, eat well and avoid strenuous exercise. Advised If symptoms do not improve or worsen advised to return to the urgent care or f/u with PCP for further evaluation and treatment. Pt understood and agreed - Differential Dx/Diagnosis Differential Diagnosis/HQI/PQRI: Bronchitis, Influenza, Pneumonia, Upper Respiratory Infection Provider Diagnosis: Viral syndrome Discharge - Sign-Out/Discharge Documenting (check all that apply): Patient Departure - d/c home All imaging exams completed and their final reports reviewed: No Studies - Discharge Plan Condition: Stable Disposition: HOME Prescriptions: Oseltamivir CAP* [Tamiflu CAP*] 75 mg PO BID #10 cap Patient Education Materials: Viral Syndrome (ED) Forms: *Work Release Referrals: Homa Michael MD [Primary Care Provider] - 3 Days Additional Instructions: 1- Please take the full course of the antiviral to avoid resistance. Encourage hand washing and wear a mask to avoid spreading. 2-Please continue taking Ibuprofen or Tylenol PO q6-8hrs prn as instructed after meals to alleviate fever, and sore throat. Increase fluid intake, eat well, rest and avoid strenuous exercise 3-If symptoms do not improve or worsen please return to the urgent care or f/u with your PCP in 3 days for further evaluation and treatment. - Billing Disposition and Condition Condition: STABLE Disposition: Home
== END 2018-11-24 12:39 | disposition home or self-care (01) ==
LOC: UCEAST 09:47
DX: B34.9 Viral infection, unspecified (principal); Z88.0 Allergy status to penicillin; Z88.1 Allergy status to other antibiotic agents; Z91.041 Radiographic dye allergy status; Z87.891 Personal history of nicotine dependence
CPT/HCPCS: 99212; G0463

== ENCOUNTER 2018-11-30 17:26 | Emergency (ER) | payer OTHER ==
[2018-11-30 18:49] VITALS: BP 140/95
--- NOTE | 2018-11-30 18:54 | UC ---
Skin Complaint HPI - HPI Summary HPI Summary: 33-year-old male presents with complaints of redness, swelling, and tenderness to his left hip. States he had a pimple-like lesion in that area yesterday that he popped. Since that time the redness and swelling have progressively worsened. States he's been taking 600 mg of ibuprofen every 6 hours with very little relief in the pain. Denies fever, chills, or history of MRSA. - History of Current Complaint Chief Complaint: UCSkin Time Seen by Provider: 11/30/18 18:28 Stated Complaint: LT HIP SKIN COMPLAINT Hx Obtained From: Patient - Allergy/Home Medications Allergies/Adverse Reactions: Allergies Allergy/AdvReac Type Severity Reaction Status Date / Time Penicillins Allergy Rash Verified 11/30/18 18:43 vancomycin Allergy Itching Verified 11/30/18 18:43 contrast dye AdvReac See Comment Uncoded 11/30/18 18:43 PMH/Surg Hx/FS Hx/Imm Hx Previously Healthy: Yes - Denies significant PMH - Surgical History Surgical History: Yes Surgery Procedure, Year, and Place: Dental extraction-wisdom teeth - Family History Known Family History: Positive: Cardiac Disease - grandfather, [place] at 40, Hypertension - father, Diabetes, Other - POS: father, blood clots/genetic clotting disorder - Social History Occupation: Employed Full-time Lives: With Family Alcohol Use: None Alcohol Amount: twice a month "binging" Substance Use Type: None Smoking Status (MU): Former Smoker Type: eCigarettes Amount Used/How Often: 2 vials per day Length of Time of Smoking/Using Tobacco: 15 years Have You Smoked in the Last Year: Yes When Did the Patient Quit Smoking/Using Tobacco: 11/2017 Household Exposure Type: Cigarettes - Immunization History Most Recent Influenza Vaccination: NOT CURRENT Most Recent Tetanus Shot: unknown Most Recent Pneumonia Vaccination: none Review of Systems All Other Systems Reviewed And Are Negative: Yes Constitutional: Negative: Fever, Chills Skin: Positive: Other - See HPI Eyes: Negative: Drainage, Eye Redness Respiratory: Positive: Negative Cardiovascular: Positive: Negative Gastrointestinal: Positive: Negative Genitourinary: Positive: Negative Musculoskeletal: Positive: Negative Neurological: Positive: Negative Is Patient Immunocompromised?: No Physical Exam - Summary Physical Exam Summary: GENERAL APPEARANCE: Well developed, well nourished, alert and cooperative, and appears to be in no acute distress. CARDIAC: Normal S1 and S2. No S3, S4 or murmurs. Rhythm is regular. There is no peripheral edema, cyanosis or pallor. Extremities are warm and well perfused. Capillary refill is less than 2 seconds. Peripheral pulses intact. LUNGS: Clear to auscultation without rales, rhonchi, wheezing or diminished breath sounds. ABDOMEN: Positive bowel sounds. Soft, nondistended, nontender. No guarding or rebound. No masses or hepatosplenomegally. MUSKULOSKELETAL: ROM intact to all extremities. No joint erythema or tenderness. Normal muscular development. Normal gait. SKIN: 4 cm circular area of tenderness, erythema, and induration with central excoriation. No fluctuance noted. Triage Information Reviewed: Yes Vital Signs Reviewed: Yes Diagnostics - Laboratory Diagnostic Studies Completed/Ordered: 33-year-old male presents with complaints of redness, swelling, and tenderness to his left hip. States he had a pimple- like lesion in that area yesterday that he popped. Since that time the redness and swelling have progressively worsened. States he's been taking 600 mg of ibuprofen every 6 hours with very little relief in the pain. Denies fever, chills, or history of MRSA. Afebrile. Vital signs stable. Exam reveals a male in no acute distress. There is a 4 cm circular area of erythema with induration and central excoriation noted to his left hip. No fluctuance is noted. Exam is otherwise unremarkable. Will treat for cellulitis using Bactrim DS 1 tab twice a day for 5 days. Since he has been routinely taking ibuprofen with very little pain relief I will provide him with a 2 day supply of hydrocodone-acetaminophen 5 mg/325 mg 1 tablet every 8 hours as needed for severe pain. [facility] PMPwas consulted. Safe to prescribe. Reference #: [id number]. He is to follow-up with his primary care provider in 5 days if symptoms do not improve. Anticipatory guidance and warning symptoms are reviewed with the patient. Verbalizes understanding and agrees with plan of care. Course/Dx - Differential Diagnoses - Skin Complaint Differential Diagnoses: Abscess, Cellulitis, MRSA - Diagnoses Provider Diagnosis: Cellulitis of left hip Discharge - Sign-Out/Discharge Documenting (check all that apply): Patient Departure All imaging exams completed and their final reports reviewed: No Studies - Discharge Plan Condition: Stable Disposition: HOME Prescriptions: Hydrocodone/Acetaminophen [Hydrocodone/Acetaminophen 5-325 mg] 1 tab PO Q8HR PRN #6 tab MDD 3 PRN Reason: Severe Pain Sulfamethox/Trimethoprim DS* [Bactrim DS 800/160 TAB*] 1 tab PO BID #10 tab Patient Education Materials: Cellulitis (ED) Referrals: Hmoa Michael MD [Primary Care Provider] - 5 Days (If no improvement in symptoms.) Additional Instructions: You have an infection of the skin called cellulitis. We will start you on an antibiotic for the infection. Take Bactrim DS 1 tab every 12 hours for 5 days. Continue to use ibuprofen according to directions as needed for pain. Take hydrocodone-acetaminophen 5 mg/325 mg 1 tab every 8 hours as needed for severe pain. Return here or follow up with your primary care provider in 5 days if no improvement in symptoms. Seek immediate medical attention in the emergency room if you develop fever greater than 100.5 F, have increased redness or swelling after being on antibiotics for 48 hours, have severe pain not managed with pain medication, or any worsening of symptoms. - Billing Disposition and Condition Condition: STABLE Disposition: Home
== END 2018-11-30 19:07 | disposition home or self-care (01) ==
LOC: UCCORT 17:26
DX: L03.116 Cellulitis of left lower limb (principal); Z88.0 Allergy status to penicillin; Z88.1 Allergy status to other antibiotic agents; Z91.041 Radiographic dye allergy status; Z87.891 Personal history of nicotine dependence
CPT/HCPCS: 99212; G0463

== ENCOUNTER 2019-03-27 15:52 | Emergency (ER) | payer OTHER ==
[2019-03-27 17:05] VITALS: BP 119/84
--- NOTE | 2019-03-27 17:29 | ED ---
Headache - HPI Summary HPI Summary: 34 yr old male with the complaint of left frontal headache, onset upon waking up this morning. Pounding and 8/10 intensity. Associated with light sensitivity and also he states his blurred vision lasting most of the morning was actually double vision. he saw two hands when looking at just his left hand. 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 He states that his father has a history of blood clots as well. He denies fever, chills. Denies other focal neuro deficits. he took motrin with marginal change in pain. Pain is still 8/ 10. - History Of Current Complaint Chief Complaint: UCHeadache Stated Complaint: MIGRAINE Time Seen by Provider: 03/27/19 17:12 - Allergies/Home Medications Allergies/Adverse Reactions: Allergies Allergy/AdvReac Type Severity Reaction Status Date / Time Penicillins Allergy Rash Verified 03/27/19 17:01 vancomycin Allergy Itching Verified 03/27/19 17:01 contrast dye AdvReac See Comment Uncoded 03/27/19 17:01 Home Medications: Home Medications Buprenorp/Nalox 8-2 MG SL TAB [Suboxone 8-2 mg SL TAB*] 1 tab TID 03/27/19 [ History Confirmed 03/27/19] PMH/Surg Hx/FS Hx/Imm Hx Endocrine/Hematology History: Denies: Hx Diabetes, Hx Thyroid Disease Cardiovascular History: Denies: Hx Congestive Heart Failure, Hx Deep Vein Thrombosis, Hx Hypertension , Hx Myocardial Infarction, Hx Pacemaker/ICD Respiratory History: Denies: Hx Asthma, Hx Chronic Obstructive Pulmonary Disease (COPD), Hx Lung Cancer, Hx Pneumonia, Hx Pulmonary Embolism GI History: Reports: Hx Ulcer Denies: Hx Gall Bladder Disease, Hx Gastrointestinal Bleed, Hx Urosepsis History: Denies: Hx Kidney Stones, Hx Renal Disease Sensory History: Denies: Hx Contacts or Glasses, Hx Hearing Aid Opthamlomology History: Denies: Hx Contacts or Glasses Neurological History: Reports: Hx Migraine Denies: Hx Dementia, Hx Seizures, Hx Transient Ischemic Attacks (TIA) Psychiatric History: Reports: Hx Anxiety Denies: Hx Depression, Hx Schizophrenia, Hx Bipolar Disorder - Surgical History Surgery Procedure, Year, and Place: Dental extraction-wisdom teeth Infectious Disease History: No Infectious Disease History: Denies: Hx Clostridium Difficile, Hx Hepatitis, Hx Human Immunodeficiency Virus (HIV), Hx of Known/Suspected MRSA, Hx Shingles, Hx Tuberculosis, Hx Known/ Suspected VRE, Hx Known/Suspected VRSA, History Other Infectious Disease, Traveled Outside the [place] in Last 30 Days - Family History Known Family History: Positive: Cardiac Disease - grandfather, [place] at 40, Hypertension - father, Diabetes, Other - POS: father, blood clots/genetic clotting disorder - Social History Alcohol Use: None Alcohol Amount: twice a month "binging" Hx Substance Use: No Substance Use Type: Reports: None Hx Tobacco Use: Yes Smoking Status (MU): Former Smoker Type: eCigarettes Amount Used/How Often: 2 vials per day Length of Time of Smoking/Using Tobacco: 15 years Have You Smoked in the Last Year: Yes Review of Systems Constitutional: Negative Neurological: Other - double vision Positive: Headache All Other Systems Reviewed And Are Negative: Yes Physical Exam Triage Information Reviewed: Yes Vital Signs On Initial Exam: Initial Vitals Temp Pulse Resp BP Pulse Ox 98 F 72 16 119/84 100 03/27/19 17:00 03/27/19 17:00 03/27/19 17:00 03/27/19 17:00 03/27/19 17:00 Vital Signs Reviewed: Yes Appearance: Positive: Well-Appearing, No Pain Distress Skin: Positive: Warm, Skin Color Reflects Adequate Perfusion Head/Face: Positive: Normal Head/Face Inspection Eyes: Positive: EOMI, RIANA ENT: Positive: Pharynx normal Neck: Positive: Nontender Respiratory/Lung Sounds: Positive: Clear to Auscultation, Breath Sounds Present Cardiovascular: Positive: RRR. Negative: Murmur Abdomen Description: Negative: Distended Musculoskeletal: Positive: Strength/ROM Intact Neurological: Positive: Sensory/Motor Intact, Alert, Oriented to Person Place, Time, CN Intact II-III, Normal Gait, Speech Normal Psychiatric: Positive: Normal - [place] Coma Scale Best Eye Response: 4 - Spontaneous Best Motor Response: 6 - Obeys Commands Best Verbal Response: 5 - Oriented Coma Scale Total: 15 Diagnostics - Vital Signs Vital Signs Temp Pulse Resp BP Pulse Ox 03/27/19 17:00 98 F 72 16 119/84 100 - Laboratory Lab Statement: Any lab studies that have been ordered have been reviewed, and results considered in the medical decision making process. Headache Course/Dx - Course Course Of Treatment: 34 yr old male with headache, reports acutual double vision. He was recommended to go to a stroke center by ambulance. He refused, and signed out AMA. - Diagnoses Provider Diagnoses: Double vision, Headache Discharge - Sign-Out/Discharge Documenting (check all that apply): Patient Departure All imaging exams completed and their final reports reviewed: No Studies - Discharge Plan Condition: Good Disposition: AGAINST MEDICAL ADVICE Referrals: Homa Michael MD [Primary Care Provider] - - Billing Disposition and Condition Condition: GOOD Disposition: Against Medical Advice
== END 2019-03-27 17:28 | disposition left against medical advice (07) ==
LOC: UCCORT 15:52
DX: H53.2 Diplopia (principal); R51 Headache; Z86.718 Personal history of other venous thrombosis and embolism; Z86.711 Personal history of pulmonary embolism; Z87.891 Personal history of nicotine dependence
CPT/HCPCS: 99212; G0463

== ENCOUNTER 2019-09-13 01:29 | Emergency (ER) | payer OTHER ==
[2019-09-13] MEDS ORDERED: Ibuprofen TAB* 600 MG PO ONE (02:05)
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
[2019-09-13] MEDS ORDERED: Ketorolac INJ* 30 MG/ML 1 ML VIAL IV PUSH ONE ×2 (04:57→08:10)
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
[2019-09-13] MEDS ORDERED: Acetaminophen TAB* 325 MG PO ONE (08:11)
[2019-09-13] MEDS ORDERED: HYDROcodone/ACETAMIN 5-325 MG* 1 TAB PO ONE (08:56)
[2019-09-13 09:37] VITALS: BP 129/76
== END 2019-09-13 09:30 | disposition home or self-care (01) ==
LOC: ED 01:29
DX: S82.141A Displaced bicondylar fracture of right tibia, initial encounter for closed fracture (principal); V48.5XXA Car driver injured in noncollision transport accident in traffic accident, initial encounter; Y92.410 Unspecified street and highway as the place of occurrence of the external cause; Z87.891 Personal history of nicotine dependence; Z88.0 Allergy status to penicillin; Z88.1 Allergy status to other antibiotic agents; Z91.041 Radiographic dye allergy status
CPT/HCPCS: 96374; 99282; A9270-GY; J1885